=== PATIENT | male | born 1935 | race Caucasian/White ===

== ENCOUNTER 2018-03-07 17:04 | Emergency (ER) | payer MEDICARE, BC ==
[2018-03-07] MEDS ORDERED: Naproxen TAB* 250 MG PO ONE (17:57)
--- NOTE | 2018-03-07 18:05 | UC ---
Back Pain HPI - HPI Summary HPI Summary: The patient is an 82-year-old male who about 12:30 PM today got up on a table to adjust a picture. He fell off the table hitting his back on a bench. He was initially unable to stand due to the pain. He crawled across the floor and after about a half hour was able to stand up. He states that the pain began to fade and he felt pretty comfortable and went home. He took a 2 hour nap and when he woke up the pain was very bad and made it difficult for him to stand. He has had no bowel or bladder dysfunction. He states his back hurts about the level of his belt line. He has had no difficulty urinating and notes that there was no blood in his urine. He has no numbness or tingling of his legs. Denies any neck pain head injury chest pain or abdominal pain. His hips do not hurt. He has not taken anything for pain. - History of Current Complaint Chief Complaint: UCBackPain Stated Complaint: BACK PAIN/PT FELL TODAY Time Seen by Provider: 03/07/18 17:50 Hx Obtained From: Patient Onset/Duration: Sudden Onset, Lasting Hours Severity Initially: Severe Severity Currently: Severe Pain Intensity: 10 Back Pain: Is Discrete @ Character: Aching, Spasmodic, Stiffness Aggravating Factor(s): Movement Alleviating Factor(s): Rest Associated Signs And Symptoms: Positive: Negative Full Body (No Head): 1 - tender - Allergies/Home Medications Allergies/Adverse Reactions: Allergies Allergy/AdvReac Type Severity Reaction Status Date / Time Penicillins Allergy Anaphylatic Verified 03/07/18 17:43 Shock Home Medications: Home Medications Albuterol Sulfate [Proventil Hfa] 2 puff IH QID 03/07/18 [History Confirmed 02/15] DOXYcycline CAP(*) [DOXYcycline 100MG CAP(*)] 100 mg PO DAILY 03/07/18 [History Confirmed 03/07/18] Levocetirizine Dihydrochloride [Xyzal] 5 mg PO DAILY 03/07/18 [History Confirmed 03/07/18] Multivitamin [Gbs-Tvtxgg-Uwbfk] 1 each PO DAILY 03/07/18 [History Confirmed 02/15] Spiriva Inhaler DEVICE* [Tiotropium Inhaler DEVICE*] 18 mcg DAILY 03/07/18 [ History Confirmed 03/07/18] PMH/Surg Hx/FS Hx/Imm Hx Previously Healthy: Yes Cardiovascular History: Hypertension Respiratory History: COPD - Surgical History Surgical History: Yes Surgery Procedure, Year, and Place: Cataracts 05/15 - Family History Known Family History: Positive: Hypertension - Social History Alcohol Use: None Substance Use Type: None Smoking Status (MU): Never Smoked Tobacco Review of Systems Constitutional: Negative Skin: Negative Eyes: Negative ENT: Negative Respiratory: Negative Cardiovascular: Negative Gastrointestinal: Negative Genitourinary: Negative Motor: Negative Neurovascular: Negative Musculoskeletal: Arthralgia, Myalgia Neurological: Negative Psychological: Negative Is Patient Immunocompromised?: No All Other Systems Reviewed And Are Negative: Yes Physical Exam Triage Information Reviewed: Yes Appearance: Well-Appearing, Well-Nourished, Pain Distress Vital Signs: Initial Vital Signs Temp 98.3 F 03/07/18 17:39 Pulse 103 03/07/18 17:39 Resp 19 03/07/18 17:39 BP 165/71 03/07/18 17:39 Pulse Ox 95 03/07/18 17:39 Vital Signs Reviewed: Yes Eyes: Positive: Conjunctiva Clear ENT: Positive: Hearing grossly normal, Uvula midline. Negative: Nasal congestion, Nasal drainage, Trismus, Muffled voice, Hoarse voice Neck: Positive: Supple, Nontender, No Lymphadenopathy Respiratory: Positive: Chest non-tender, Lungs clear, Normal breath sounds, No respiratory distress, No accessory muscle use Cardiovascular: Positive: RRR, No Murmur Abdomen Description: Positive: Nontender, No Organomegaly, Soft Musculoskeletal: Positive: ROM Intact, No Edema Neurological Exam: Normal Neurological: Positive: Alert Diagnostics - Radiology No standard instances Xray Interpretation: No Acute Changes - Negative for lumbar sacral spine fracture or malalignment Radiology Interpretation Completed By: Radiologist Re-Evaluation - Re-Evaluation First Eval Re-Evaluation Time: 19:20 Change: Improved Comment: pain markedly decreased Back Pain Course/Dx - Differential Dx/Diagnosis Provider Diagnoses: back contusion Discharge - Sign-Out/Discharge Documenting (check all that apply): Patient Departure - Discharge Plan Condition: Stable Disposition: HOME Patient Education Materials: Contusion in Adults (ED) Referrals: Al Peña DO [Primary Care Provider] - 3 Days (recheck in 3-7 days) Additional Instructions: aleve 1-2 twice daily for pain tylenol ice - Billing Disposition and Condition Condition: STABLE Disposition: Home
[2018-03-07] MEDS ORDERED: Ondansetron ODT TAB* 4 MG PO ONE (18:10)
--- NOTE | 2018-03-07 18:49 | RAD ---
Indication: Mid lower back pain post fall. Comparison: No relevant prior exams available on the [facility] PACS for comparison. Technique: AP, lateral, and oblique views lumbar sacral spine. Report: Alignment is anatomic. No cortical disruption or trabecular impaction to indicate a vertebral body fracture. Oblique views without evidence for spondylolysis. Minimal multilevel vertebral and plate osteophytosis without significant disc space narrowing. Multilevel predominant mild facet joint osteoarthritis. Unremarkable soft tissue contours. IMPRESSION: #. Negative for lumbar sacral spine fracture or malalignment.
[2018-03-07 19:35] VITALS: BP 120/53
--- NOTE | 2018-03-09 16:21 | UC ---
- Progress Note Progress Note: UTI + enteroccus Pt on Doxy await sensitivity no change Ljj 03/09/18 Re-Evaluation - Re-Evaluation First Eval Re-Evaluation Time: 19:20 Change: Improved Comment: pain markedly decreased Discharge - Sign-Out/Discharge Documenting (check all that apply): Post-Discharge Follow Up - Discharge Plan Condition: Stable Disposition: HOME Patient Education Materials: Contusion in Adults (ED) Referrals: Al Peña DO [Primary Care Provider] - 3 Days (recheck in 3-7 days) Additional Instructions: aleve 1-2 twice daily for pain tylenol ice - Billing Disposition and Condition Condition: STABLE Disposition: Home
== END 2018-03-07 19:36 | disposition home or self-care (01) ==
LOC: UCCORT 17:04
DX: S30.0XXA Contusion of lower back and pelvis, initial encounter (principal); W08.XXXA Fall from other furniture, initial encounter; Y93.89 Activity, other specified; Y92.9 Unspecified place or not applicable; Z88.0 Allergy status to penicillin; I10 Essential (primary) hypertension; J44.9 Chronic obstructive pulmonary disease, unspecified
CPT/HCPCS: 72110; 81003; 87077; 87086; 87186; 99212; A9270-GY; G0463

== ENCOUNTER 2018-05-05 12:46 | Emergency (ER) | payer MEDICARE, BC ==
--- OUTSIDE RECORDS SUMMARY | 2018-05-05 12:57 | XMS REPORT | Continuity of Care Document ---
:1935 External Reference #:[id number] Author Name Katarzyna Shankar Care Team Providers Name Role Phone Alma Rosa Mann M.D. Care Team Information Rn Icu Unavailable Reema Tomas PA-C Primary Care Physician Unavailable Payers Type Date Identification Numbers Payment Provider Subscriber Policy Number: [id number] Medicare Edvin Neely PayID: [id number] [address] [place] [address] Effective: 2011 Policy Number: [id number] [facility] Edvin Neely PayID: [id number] [address] [address] [place] [address] Advance Directives Description No Information Available Problems Description No Information Family History Date Family Member(s) Problem(s) Comments General neck cancer-sister : (age 65 Years) Father due to Unknown Causes : (age 72 Years) Mother due to Cancer Social History Type Date Description Comments Sex Unknown Marital Status Occupation Retired Occupation Tobacco Use Start: Unknown End: Used To Smoke Cigarettes But Unknown Quit. ETOH Use Rarely consumed alcohol in the past Recreational Drug Use Never Used Drugs Allergies, Adverse Reactions, Alerts Date Description Reaction Status Severity Comments 12/04/2012 Penicillin Active 01/15/2013 Bee Sting Active 05/01/2018 Ampicillin Active Medications Medication Date Status Form Strength Qnty SIG Indications Ordering Provider Advair Diskus / Active Aerosol 1 puff Unknown 0000 twice a day Vitamin C / Active Tablets 1 by Unknown 0000 mouth every day Multivitamins / Active Capsules 1 a day Unknown 0000 Calcium + D 00/ Active Chewtabs Unknown 0000 Montelukast / Active Tablets 10mg 1 by Unknown Sodium 0000 mouth every day Avodart / Active Capsules Unknown 0000 Olopatadine HCL / Active Solution Unknown 0000 Levocetirizine / Active Tablets 5mg 1 by Unknown Dihydrochloride 0000 mouth every day Spiriva 00/00/ Active Capsules 18mcg 1 by Unknown Handihaler 0000 mouth every day Atorvastatin 00/ Active Tablets 1 by Unknown Calcium 0000 mouth every day Aspirin 00/00/ Active Tablets DR 81mg everyday Unknown 0000 Lisinopril-Hydroc / Active Tablets 1 by Unknown hlorothiazide 0000 mouth every day Proair HFA / Active Aerosol 108(90Bas 2puffs Unknown 0000 e) four mcg/Act times a day as needed for sob Mometasone / Active Suspension 2 squirts Unknown Furoate 0000 each nostril every day Cetirizine HCL 01/15/ Hx Tablets 10mg 90tab /2-1 po Chris, 2013 - s qd as George, 04/30/ needed M.D. 2018 Patanol 01/15/ Hx Solution 0.1% 3bott 1 drop Chris, 2012 - le each eye George, 04/30/ twice M.D. 2018 daily for itching Astelin 12/04/ Hx Solution 137mcg/Sp 3unit 2 sprays Chris, 2013 - ray s each George, 04/30/ nostil M.D. 2018 qhs Hydrocortisone / Hx Cream 2.5% tid to Unknown 0000 - affected 04/30/ area 2018 Advair Diskus 00/00/ Hx Aerosol 500-50mcg 1unit 1 puff Unknown 0000 - /Dose s twice 04/30/ daily 2018 Advair Diskus 00/00/ Hx Aerosol 100-50mcg 1unit 1 puff Unknown 0000 - /Dose s bid 2017 Lisinopril / Hx Tablets 10mg Unknown - 2017 Multivitamin /00/ Hx qd Unknown - 2017 Vitamin C / Hx 250mg Unknown - 2017 Aspirin 00/ Hx Tablets DR 81mg qday Unknown - 2017 Avodart / Hx Capsules 0.5mg Unknown - 2017 Calcium /00/ Hx 600mg Unknown - 2017 Immunizations Description No Information Available Vital Signs Date Vital Result Comment 05/01/2018 10:37am Weight 189.00 lb Height 68.5 inches 5'8.50" BMI (Body Mass Index) 28.3 kg/m2 BP Systolic 146 mmHg BP Diastolic 58 mmHg Heart Rate 72 /min O2 % BldC Oximetry 92 % Body Temperature 97.6 F Pain Level 0 01/15/2013 9:10am Weight 198.00 lb Height 68.5 inches 5'8.50" BMI (Body Mass Index) 29.7 kg/m2 BP Systolic 144 mmHg BP Diastolic 60 mmHg Body Temperature 98.9 F 12/04/2012 2:02pm Weight 201.00 lb Height 68.5 inches 5'8.50" BMI (Body Mass Index) 30.1 kg/m2 BP Systolic 137 mmHg BP Diastolic 68 mmHg Heart Rate 78 /min O2 % BldC Oximetry 96 % Body Temperature 97.9 F Results Description No Information Available Procedures Description No Information Available Encounters Type Date Location Provider Dx Diagnosis Office Visit 01/15/2013 9:00a Main Office Vicki Monreal, 472.0 Rhinitis Chronic PA 995.3 Allergy Unspec 372.14 Conjunctivitis Chronic Allergic Other Office Visit 12/04/2012 1:45p Main Office Joya Watson 478.0 Hypertrophy Nasal Hughes, [employer] 472.0 Rhinitis Chronic Plan of Treatment No Information Available
--- OUTSIDE RECORDS SUMMARY | 2018-05-05 12:57 | XMS REPORT ---
:1935 External Reference #:[id number] Author Organization [facility] Address [address], [address] [place] [address] Phone [phone] Care Team Providers Name Role Phone CaseyAl Primary Care Physician Unavailable Payers Type Date Identification Numbers Payment Provider Subscriber Medicare Primary Effective: Policy Number: Medicare Edvin Neely 2000 [id number] PayID: [id number] [address] [address] [place] [address] Medigap Part B Effective: 2017 Policy Number: [facility] Edvin Neely [id number] PayID: [id number] [address] [address] [place] [address] Problems Description No Information Family History Date Family Member(s) Problem(s) Comments : (age 63 Father due to Natural Years) Causes : (age 72 Mother due to Breast Secondary to compliactions Years) Cancer of breast cancer with metastasis Social History Type Date Description Comments Marital Status Home Environment Lives With Cigarette Use Former Cigarette Smoker Quit in 1995 ETOH Use Occasionally consumes alcohol Recreational Drug Use Denies Drug Use Smoking Patient is a former smoker Allergies, Adverse Reactions, Alerts Date Description Reaction Status Severity Comments 12/31/2016 Penicillins active Medications Medication Date Status Form Strength Qnty SIG Indications Ordering Provider Stiolto Respimat 04/25 Active Aerosol 2.5-2.5mc 4unit take 2 J44.9 Kheti, g/Act s puffs once MD Mathew daily. Spiriva 12/31 Active Capsules 18mcg 30cap Inhale The J44.9 Kheti, Handihaler s Contents MD Mathew Of One Capsule Via Handihaler By Mouth Daily Advair Diskus Active Aerosol 500-50mcg inhale one Unknown /0000 /Dose puff by mouth once a day if needed. Montelukast Active Tablets 10mg 1 by mouth Unknown Sodium /0000 every day Hydrochlorothiazi Active Tablets 25mg 1 by mouth Unknown de / every day Atorvastatin Active Tablets 10mg 1 by mouth Unknown Calcium /0000 every day Ventolin HFA Active Aerosol 108(90Bas 1-2 puffs Unknown /0000 e) every 4-6 mcg/Act hours as needed Dutasteride Active Capsules 0.5mg 1 capsule Unknown / daily. Levocetirizine Active Tablets 5mg 1 by mouth Unknown Dihydrochloride / every day Olopatadine HCL Active Solution 0.1% 1-2 drops Unknown / each eye once to twice daily as beeded, Vitamin C Active Tablets 500mg 1 tablet Unknown / daily Calcium 600 + D Active Tablets 600-200mg twice a Unknown /0000 -Unit day Multivitamin Active Tablets Adlt 50+ 1 by mouth Unknown Adults 50+ /0000 every day Aspir-[address] 81mg 1 by mouth Unknown / every day Lisinopril-Hydroc Active Tablets 20-25mg 1 by mouth Unknown hlorothiazide /0000 every day Nasonex Active Suspension 50mcg/Act one spray Unknown / each nostril one to two times a day Spiriva Hx Capsules 18mcg 1 Unknown Handihaler /0000 inhalation every day Lisinopril Hx Tablets 10mg 1 by mouth Unknown /0000 every day Ipratropium Hx Solution 0.06% 2 sprays Unknown [place] /0000 to each nostril twice a day Doxycycline Hx Tablets 20mg 1 tab in Unknown Hyclate /0000 am; 1 tab in pm. 3 months on - 3 months off. Spiriva Respimat Hx Aerosol 2.5mcg/Ac take 2 Unknown /0000 t puffs once daily. Vital Signs Date Vital Result Comment 04/25/2018 BP Systolic Sitting Left Arm 128 mmHg BP Diastolic Sitting Left Arm 58 mmHg Heart Rate 103 /min Respiratory Rate 16 /min Height 70 inches 5'10" Weight 187.00 lb BMI (Body Mass Index) 26.8 kg/m2 BSA (Body Surface Area) 2.03 m2 [place] body weight in kilograms 75 O2 Saturation Level with Exercise 94 % 07/06/2017 BP Systolic Sitting Right Arm 128 mmHg BP Diastolic Sitting Right Arm 70 mmHg Heart Rate 78 /min Respiratory Rate 18 /min Height 70 inches 5'10" Weight 180.00 lb BMI (Body Mass Index) 25.8 kg/m2 BSA (Body Surface Area) 2.00 m2 [place] body weight in kilograms 75 O2 % BldC Oximetry 95 % 12/31/2016 BP Systolic Sitting Right Arm 132 mmHg BP Diastolic Sitting Right Arm 52 mmHg Heart Rate 72 /min Respiratory Rate 18 /min Height 70 inches 5'10" Weight 187.00 lb BMI (Body Mass Index) 26.8 kg/m2 BSA (Body Surface Area) 2.03 m2 [place] body weight in kilograms 75 O2 % BldC Oximetry 100 % ra Results Test Date Test Result H/L Range Note Lymphocytes/leuk NFr 12/07/2016 Lymphocytes/leuk NFr 5.9 Low 20.0-42.0 Bld Auto Bld Auto MCH RBC Qn Auto 12/07/2016 MCH RBC Qn Auto 31.0 27.0-33.0 MCHC RBC Auto-mCnc 12/07/2016 MCHC RBC Auto-mCnc 32.2 31.7-36.0 MCV RBC Auto 12/07/2016 MCV RBC Auto 96.2 High 80.0-96.0 Monocytes # Bld Auto 12/07/2016 Monocytes # Bld Auto 0.33 0.0-0.8 Monocytes/leuk NFr 12/07/2016 Monocytes/leuk NFr 3.0 0.0-10.0 Bld Auto Bld Auto Neutrophils # Bld 12/07/2016 Neutrophils # Bld 9.94 High 1.8-7.0 Auto Auto Neutrophils/leuk NFr 12/07/2016 Neutrophils/leuk NFr 91.1 High 33.0-73.0 Bld Auto Bld Auto PMV Bld Auto 12/07/2016 PMV Bld Auto 11.0 High 6.6-10.6 Platelets [#/volume] 12/07/2016 Platelets [#/volume] 202 150-400 in Blood by Automated in Blood by Automated count count Potassium SerPl-sCnc 12/07/2016 Potassium SerPl-sCnc 4.6 3.5-5.1 RBC # Bld Auto 12/07/2016 RBC # Bld Auto 3.97 Low 4.20-5.80 RDW RBC Auto 12/07/2016 RDW RBC Auto 46.9 36-51 RDW RBC Auto-Rto 12/07/2016 RDW RBC Auto-Rto 13.7 11.6-15.8 Sodium SerPl-sCnc 12/07/2016 Sodium SerPl-sCnc 142 136-145 Unloinc 12/07/2016 Unloinc See Note 1 WBC # Bld Auto 12/07/2016 WBC # Bld Auto 10.9 High 3.4-10.5 Legionella Culture 12/07/2016 Legionella Culture (SEE NOTE) 2, 3 Basic Metabolic Panel 12/07/2016 Glucose 169 mg/dL High 74-106 2 BUN 39 mg/dL High 7-18 2 Creatinine 1.2 mg/dL 0.6-1.3 2 Glom Filtration Rate, Estimate >60 mL/min >60 2 If >60 mL/min >60 2, 4 BUN/Creat 32.5 ratio 2 Sodium 142 mmol/L 136-145 2 Potassium 4.6 mmol/L 3.5-5.1 2 Chloride 104 mmol/L 98-107 2 Carbon Dioxide 30 mmol/L 21-32 2 Anion Gap 8 mEq/L 8-16 2 Calcium 9.2 mg/dL 8.5-10.1 2 CBS W/Automated Diff 12/07/2016 White Blood Count 10.9 K/uL High 3.4-10.5 2 Red Blood Count 3.97 M/uL Low 4.20-5.80 2 Hemoglobin 12.3 gm/dL Low 12.8-17.0 2 Hematocrit 38.2 % 38.0-48.0 2 Mean Cell Volume 96.2 fl High 80.0-96.0 2 Mean Corpuscular HGB 31.0 pg 27.0-33.0 2 Mean Corpuscular HGB Conc 32.2 g/dL 31.7-36.0 2 Platelet Count 202 K/uL 150-400 2 Red Cell Distri Width SD 46.9 fl 36-51 2 Red Cell Distri Width %CV 13.7 % 11.6-15.8 2 Mean Platelet Volume 11.0 fL High 6.6-10.6 2 Neut% 91.1 % High 33.0-73.0 2 Lymph % 5.9 % Low 20.0-42.0 2 Harlan % 3.0 % 0.0-10.0 2 Eo% 0.0 % 0.0-6.6 2 Bas% 0.0 % 0.0-1.1 2 Neut# 9.94 K/uL High 1.8-7.0 2 Lymph # 0.64 K/uL Low 1.0-4.0 2 Harlan # 0.33 K/uL 0.0-0.8 2 Eos # 0.00 K/uL 0.0-0.5 2 Baso # 0.00 K/uL 0.0-0.1 2 Slide Review 12/07/2016 Slide Review (SEE NOTE) 2, 5 Anion Gap SerPl-sCnc 12/07/2016 Anion Gap SerPl-sCnc 8 8-16 BUN SerPl-mCnc 12/07/2016 BUN SerPl-mCnc 39 High 7-18 BUN/Creat SerPl 12/07/2016 BUN/Creat SerPl 32.5 Basophils [#/volume] 12/07/2016 Basophils [#/volume] 0.00 0.0-0.1 in Blood by Automated in Blood by Automated count count Basophils/leuk NFr 12/07/2016 Basophils/leuk NFr 0.0 0.0-1.1 Bld Auto Bld Auto Lymphocytes 12/07/2016 Lymphocytes 0.64 Low 1.0-4.0 [#/volume] in Blood [#/volume] in Blood by Automated count by Automated count Hgb Bld-mCnc 12/07/2016 Hgb Bld-mCnc 12.3 Low 12.8-17.0 Hct VFr Bld Auto 12/07/2016 Hct VFr Bld Auto 38.2 38.0-48.0 Glucose [Mass/volume] 12/07/2016 Glucose [Mass/volume] 169 High 74-106 in Serum or Plasma in Serum or Plasma Eosinophil/leuk NFr 12/07/2016 Eosinophil/leuk NFr 0.0 0.0-6.6 Bld Auto Bld Auto Co2 SerPl-sCnc 12/07/2016 Co2 SerPl-sCnc 30 21-32 Calcium SerPl-mCnc 12/07/2016 Calcium SerPl-mCnc 9.2 8.5-10.1 Eosinophil # Bld Auto 12/07/2016 Eosinophil # Bld Auto 0.00 0.0-0.5 Chloride SerPl-sCnc 12/07/2016 Chloride SerPl-sCnc 104 98-107 Creat SerPl-mCnc 12/07/2016 Creat SerPl-mCnc 1.2 0.6-1.3 Total Cells Counted 12/06/2016 Total Cells Counted 100 Bld Bld Neuts Seg/leuk NFr 12/06/2016 Neuts Seg/leuk NFr 70 33-73 Bld Manual Bld Manual Neuts Band/leuk NFr 12/06/2016 Neuts Band/leuk NFr 20 High 0-8 Bld Manual Bld Manual Monocytes/100 12/06/2016 Monocytes/100 1 0-10 leukocytes in Blood leukocytes in Blood by Manual count by Manual count Basic Metabolic Panel 12/06/2016 Glucose 173 mg/dL High 74-106 2 BUN 47 mg/dL High 7-18 2 Creatinine 1.3 mg/dL 0.6-1.3 2 Glom Filtration Rate, Estimate 56 mL/min >60 2 If >60 mL/min >60 2, 6 BUN/Creat 36.1 ratio 2 Sodium 140 mmol/L 136-145 2 Potassium 3.8 mmol/L 3.5-5.1 2 Chloride 102 mmol/L 98-107 2 Carbon Dioxide 30 mmol/L 21-32 2 Anion Gap 8 mEq/L 8-16 2 Calcium 9.1 mg/dL 8.5-10.1 2 CBS W/Automated Diff 12/06/2016 White Blood Count 11.2 K/uL High 3.4-10.5 2 Red Blood Count 3.96 M/uL Low 4.20-5.80 2 Hemoglobin 12.5 gm/dL Low 12.8-17.0 2 Hematocrit 38.2 % 38.0-48.0 2 Mean Cell Volume 96.5 fl High 80.0-96.0 2 Mean Corpuscular HGB 31.6 pg 27.0-33.0 2 Mean Corpuscular HGB Conc 32.7 g/dL 31.7-36.0 2 Platelet Count 187 K/uL 150-400 2 Red Cell Distri Width SD 47.6 fl 36-51 2 Red Cell Distri Width %CV 13.9 % 11.6-15.8 2 Mean Platelet Volume 11.7 fL High 6.6-10.6 2, 7 Neut# 10.13 K/uL High 1.8-7.0 2 Lymph # 0.58 K/uL Low 1.0-4.0 2 Harlan # 0.46 K/uL 0.0-0.8 2 Eos # 0.00 K/uL 0.0-0.5 2 Baso # 0.01 K/uL 0.0-0.1 2 Slide Review 12/06/2016 Slide Review DIFF ORDERED 2 Lymphocytes/100 12/06/2016 Lymphocytes/100 9 Low 20-42 leukocytes in Blood by leukocytes in Blood by Manual coun Manual count Differential-WBC Confirm 12/06/2016 Total Cells Counted 100 #CELLS 2 Band% 20 % High 0-8 2 Neutrophils% 70 % 33-73 2 Lymph% 9 % Low 20-42 2 Monocyte% 1 % 0-10 2 Platelet Estimate NORMAL 2 Dohle Bodies 0-1+ 2 Blood platelet adequacy 12/06/2016 Blood platelet adequacy Normal detection by light detection by light microsc microscopy Serum or plasma 12/05/2016 Serum or plasma 0.094 troponin i.cardiac troponin i.cardiac measurement (ma measurement (mass/volume) Serum or plasma 12/05/2016 Serum or plasma 158 39-308 creatine kinase creatine kinase measurement (enzym measurement (enzymatic activity/volume) Prot SerPl-mCnc 12/05/2016 Prot SerPl-mCnc 7.6 6.4-8. 2 Globulin Ser Calc-mCnc 12/05/2016 Globulin Ser Calc-mCnc 4.4 High 1.9-4. 3 Bilirub SerPl-mCnc 12/05/2016 Bilirub SerPl-mCnc 0.7 0.2-1. 0 Aspartate 12/05/2016 Aspartate 28 15-37 aminotransferase aminotransferase [Enzymatic activity/vol [Enzymatic activity/volume] in Serum or Plasma Albumin/Glob SerPl 12/05/2016 Albumin/Glob SerPl 0.7 Albumin SerPl-mCnc 12/05/2016 Albumin SerPl-mCnc 3.2 Low 3.4-5. 0 Alt SerPl-cCnc 12/05/2016 Alt SerPl-cCnc 34 12-78 Alp SerPl-cCnc 12/05/2016 Alp SerPl-cCnc 83 45-117 Fibrin D-dimer Feu 12/05/2016 Fibrin D-dimer Feu 0.87 measurement in platelet measurement in platelet poor pl poor plasma (mass/volume) Blood Culture 12/05/2016 Blood Culture Aerobic NO GROWTH: 2, 8 FINAL <SEE NOTE> Blood Culture Anaerobic NO GROWTH: FINAL <SEE NOTE> 2, 9 Lactate [Moles/volume] in 12/05/2016 Lactate [Moles/volume] in 1.9 0.4- 1.9 Serum or Plasma Serum or Plasma Bacteria Bld Aerobe Cult 12/05/2016 Bacteria Bld Aerobe Cult No Growth Anaerobic blood culture 12/05/2016 Anaerobic blood culture No Growth Unloinc 12/05/2016 Unloinc R.Rad.Art. Unloinc Oxygen Unloinc Yes Arterial blood partial 12/05/2016 Arterial blood partial 65 Low 80-105 pressure of oxygen with pressure of oxygen with tem temperature correction Arterial blood partial 12/05/2016 Arterial blood partial 52 High 35-45 pressure of carbon dioxide pressure of carbon dioxide with temperature correction Arterial blood pH 12/05/2016 Arterial blood pH 7.34 Low 7.35-7.45 measurement with patient measurement with patient tempera temperature correction Arterial blood oxygen 12/05/2016 Arterial blood oxygen 89 Low 90-99 saturation measurement saturation measurement Arterial blood bicarbonate 12/05/2016 Arterial blood 27 High 22-26 measurement (moles/volu bicarbonate measurement (moles/volume) Arterial blood base excess 12/05/2016 Arterial blood base 1 -2-2 by calculation excess by calculation * Inhaled oxygen flow rate 12/05/2016 * Inhaled oxygen flow 3 0-20 rate 1 Instrument flagged sample for slide review. Less than 10% Bands seen, no other immature WBC's seen. RBC morphology essentially normal. Platelet estimate= Normal 2 COPD EXACERBATION, AC BRONCHITIS 3 Legionella Species Culture Report: No Legionella species isolated. Performed at: RN - [facility] [address] [id number] Lav Crewman: Ivon London MD, Phone: [phone] Note: Persistent reduction for 3 months or more in an eGFR <60 mL/min/1.73 m2 defines CKD. Patients with eGFR values >/=60 mL/min/1.73 m2 may also have CKD if evidence of persistent proteinuria is present. The original MDRD equation for estimated GFR is not valid for patients less than 18 years of age. Additional information may be found at www.kdoqi.org. 5 Instrument flagged sample for slide review. Less than 10% Bands seen, no other immature WBC's seen. RBC morphology essentially normal. Platelet estimate=NORMAL 6 Note: Persistent reduction for 3 months or more in an eGFR <60 mL/min/1.73 m2 defines CKD. Patients with eGFR values >/=60 mL/min/1.73 m2 may also have CKD if evidence of persistent proteinuria is present. The original MDRD equation for estimated GFR is not valid for patients less than 18 years of age. Additional information may be found at www.kdoqi.org. 7 12/06/16 0911: NEUT% previously reported as: 90.6 H % Amended result called to: [] - 12/06/16 at 0912/06/16 0911: LYMPH % previously reported as: 5.2 L % Amended result called to: [] - 12/06/16 at 91012/06/16 0911: MONO % previously reported as: 4.1 % Amended result called to: [] - 12/06/16 at 0911 12/06/16 0911: EO% previously reported as: 0.0 % Amended result called to: [] - 12/06/16 at 0911 12/06/16 0911: BAS% previously reported as: 0.1 % Amended result called to: [] - 12/06/16 at 0911 8 NO GROWTH: FINAL REPORT 9 NO GROWTH: FINAL REPORT Procedures Date CPT Code Description Status 01/19/2017 00598 Bronchospasm Provocation Evaluation Multi Spirometric Completed Determinati 01/19/2017 75261 Spirometry Completed Encounters Type Date Location Provider CPT E/M Dx Office Visit 07/06/2017 2:30p [place] [address] J44.9 Z87.891 Z79.51 Office Visit 12/31/2016 1:00[place] [address] J44.9 F17.211 J30.89 Plan of Care Future Appointment(s):09/25/2018 1:45 pm - Mathew [facility]drop MD at [facility]/25 /2018 - Mathew Waldrop MDJ44.9 Chronic obstructive pulmonary disease, unspecifiedNew Medication:Stiolto Respimat 2.5-2.5 mcg/ActComments:GOLD Stage B COPD; moderate to severe symptoms but without frequent ex acerbations. I am going to change Spiriva to Stiolto (2 puffs once in the morning). He has about 1 1/2 months left of Spiriva at home and wishes to finish that before changing.Follow up:5 months
[2018-05-05 13:07] VITALS: BP 151/46
[2018-05-05] MEDS ORDERED: Lidocaine 1% MPF* 2 ML VIAL INJ ONE (13:32)
--- NOTE | 2018-05-05 13:56 | UC ---
Skin Complaint HPI - HPI Summary HPI Summary: Patient states that he lost his footing at [employer]oo and tripped causing him to hit his left ear on a table. This happened about one and half hours prior to arrival he denies loss of consciousness, headache, visual change, neck and back pain. He denies any other injuries offers no other complaints. He is not on blood thinners other than daily aspirin. His tetanus is within the past 10 years. - History of Current Complaint Chief Complaint: UCLaceration Time Seen by Provider: 05/05/18 13:17 Stated Complaint: LEFT EAR LAC Hx Obtained From: Patient Onset/Duration: Sudden Onset Timing: Constant Pain Intensity: 0 Location: Ear (Left) Aggravating Factor(s): Nothing Alleviating Factor(s): Nothing - Pinna Associated Signs & Symptoms: Negative: Nausea, Syncope, Joint Swelling - Allergy/Home Medications Allergies/Adverse Reactions: Allergies Allergy/AdvReac Type Severity Reaction Status Date / Time Penicillins Allergy Anaphylatic Verified 05/05/18 13:00 Shock Review of Systems Constitutional: Negative Skin: Other - Cut to left ear Eyes: Negative ENT: Negative Respiratory: Negative Cardiovascular: Negative Gastrointestinal: Negative Genitourinary: Negative Motor: Negative Neurovascular: Negative Musculoskeletal: Negative Neurological: Negative Psychological: Negative Is Patient Immunocompromised?: No All Other Systems Reviewed And Are Negative: Yes PMH/Surg Hx/FS Hx/Imm Hx - Additional Past Medical History Additional PMH: Hypotension, COPD, allergies. - Surgical History Surgical History: Yes Surgery Procedure, Year, and Place: Cataracts 05/15 - Family History Known Family History: Positive: Hypertension - Social History Lives: With Family Alcohol Use: None Substance Use Type: None Smoking Status (MU): Former Smoker When Did the Patient Quit Smoking/Using Tobacco: 96 - Immunization History Most Recent Tetanus Shot: 3-4 years ago Hx Tetanus, Diphtheria Vaccination: Yes Vaccination Up to Date: Yes Physical Exam Triage Information Reviewed: Yes Appearance: Well-Appearing Vital Signs: Initial Vital Signs Temp 98.2 F 05/05/18 13:03 Pulse 88 05/05/18 13:03 Resp 18 05/05/18 13:03 BP 151/46 05/05/18 13:03 Pulse Ox 96 05/05/18 13:03 Vital Signs Reviewed: Yes Eyes: Positive: Conjunctiva Clear, Other: - Pupils status post cataract. ENT: Positive: Pharynx normal, TMs normal, Other - There is a 2 cm laceration to the pinna of the left ear. I cannot appreciate a Cartledge defect. There is mild bruising but no auricular hematoma.. Negative: Nasal congestion, Nasal drainage Neck: Positive: Supple, Nontender, No Lymphadenopathy Respiratory: Positive: Lungs clear, Normal breath sounds Cardiovascular: Positive: RRR, No Murmur Abdomen Description: Positive: Nontender, No Organomegaly, Soft Bowel Sounds: Positive: Present Musculoskeletal: Positive: Other: - No cranial or facial bone instability or tenderness. Cervical thoracic and lumbar spine are without deformity or tenderness. Extremities are atraumatic. Neurological: Positive: Other: - Patient is alert and oriented to person place and time. Cranial nerves grossly intact. Sensorivascular motor function intact 4. Normal steady gait. Psychological: Positive: Age Appropriate Behavior Skin Exam: Normal Course/Dx - Course Course Of Treatment: Procedure: time out done. prep betadine. local with 1ml 1% lidocaine. explord, no FB and no cartilage damage appreciated. Site irrigated with copious amounts sterile sodium chloride. Reprepped with Betadine. Draped in sterile fashion. Closed with 6-0 nylon and 5 interrupted stitches. Good approximation of wound edges no bleeding postprocedure he should tolerate procedure well. 2.0cm in length. s/s's auricular hematoma d/w pt, he will seek recheck immediately for any worsening. - Diagnoses Provider Diagnoses: 2cm lac L ear Discharge - Sign-Out/Discharge Documenting (check all that apply): Patient Departure All imaging exams completed and their final reports reviewed: No Studies - Discharge Plan Condition: Stable Disposition: HOME Patient Education Materials: Care For Your Stitches (DC) Referrals: Al Peña DO [Primary Care Provider] - Additional Instructions: SUTURES OUT IN 5 DAYS. RECHECK IMMEDIATELY FOR SWELLING. - Billing Disposition and Condition Condition: STABLE Disposition: Home
== END 2018-05-05 14:05 | disposition home or self-care (01) ==
LOC: UCCORT 12:46
DX: W01.190A Fall on same level from slipping, tripping and stumbling with subsequent striking against furniture, initial encounter (principal); Y93.01 Activity, walking, marching and hiking; Y92.22 Religious institution as the place of occurrence of the external cause; S01.312A Laceration without foreign body of left ear, initial encounter; Z88.0 Allergy status to penicillin; Z87.891 Personal history of nicotine dependence
CPT/HCPCS: 12011; 99211; G0463

== ENCOUNTER 2018-05-10 10:55 | Emergency (ER) | payer MEDICARE, BC ==
--- OUTSIDE RECORDS SUMMARY | 2018-05-10 11:05 | XMS REPORT | Continuity of Care Document ---
:1935 External Reference #:[id number] Author Name Joya Hughes NP Address [address] [place] [address] Care Team Providers Name Role Phone Alma Rosa Mann M.D. Care Team Information Gambling Broker Unavailable Reema Tomas PA-C Primary Care Physician Unavailable Payers Type Date Identification Numbers Payment Provider Subscriber Policy Number: [id number] Medicare Edvin Neely PayID: [id number] [address] [place] [address] Effective: 2011 Policy Number: [id number] [facility] Edvin Neely PayID: [id number] [address] [address] [place] [address] Advance Directives Description No Information Available Problems [...] Form Strength Qnty SIG Indications Ordering Provider Percocet 05/03/ Active Tablets 5-325mg 14tab 1-2 by Jaqui Perez s mouth George, four M.D. times a day as needed for pain Advair Diskus / Active Aerosol 1 puff Unknown 0000 twice a day Vitamin C / Active Tablets 1 by Unknown 0000 mouth every day Multivitamins / Active Capsules 1 a day Unknown 0000 Calcium + D / Active Chewtabs Unknown 0000 Montelukast / Active Tablets 10mg 1 by Unknown Sodium 0000 mouth every day Avodart / Active Capsules Unknown 0000 Olopatadine HCL / Active Solution Unknown 0000 Levocetirizine / Active Tablets 5mg 1 by Unknown Dihydrochloride 0000 mouth every day Spiriva / Active Capsules 18mcg 1 by Unknown Handihaler 0000 mouth every day Atorvastatin / Active Tablets 1 by Unknown Calcium 0000 mouth every day Aspirin / Active Tablets DR 81mg everyday Unknown 0000 Lisinopril-Hydroc / Active Tablets 1 by Unknown hlorothiazide 0000 mouth every day Proair HFA / Active Aerosol 108(90Bas 2puffs Unknown 0000 e) four mcg/Act times a day as needed for sob Mometasone / Active Suspension 2 squirts Unknown Furoate 0000 each nostril every day Cetirizine HCL 01/15/ Hx Tablets 10mg 90tab 1/2-1 po Chris, 2013 - s qd as George, 04/30/ needed M.D. 2018 Patanol 01/15/ Hx Solution 0.1% 3bott 1 drop Chris, 2013 - le each eye George, 04/30/ twice M.D. 2018 daily for itching Astelin 12/04/ Hx Solution 137mcg/Sp 3unit 2 sprays Chris, 2013 - ray s each George, 04/30/ nostil M.D. 2018 qhs Hydrocortisone / Hx Cream 2.5% tid to Unknown 0000 - affected 04/30/ area 2018 Advair Diskus 00/ Hx Aerosol 500-50mcg 1unit 1 puff Unknown 0000 - /Dose s twice 04/30/ daily 2018 Advair Diskus 0000/ Hx Aerosol 100-50mcg 1unit 1 puff Unknown 0000 - /Dose s bid 2017 Lisinopril / Hx Tablets 10mg Unknown - 2017 Multivitamin /00/ Hx qd Unknown - 2017 Vitamin C // Hx 250mg Unknown - 2017 Aspirin / Hx Tablets DR 81mg qday Unknown - 2017 Avodart / Hx Capsules 0.5mg Unknown 2017 Calcium / Hx 600mg Unknown 2017 Immunizations Description No Information Available Vital Signs Date Vital Result Comment 05/10/2018 10:22am Weight 188.00 lb Height 68.5 inches 5'8.50" BMI (Body Mass Index) 28.2 kg/m2 BP Systolic 165 mmHg BP Diastolic 50 mmHg Heart Rate 91 /min O2 % BldC Oximetry 92 % Body Temperature 98.0 F Pain Level 0 05/01/2018 10:37am Weight 189.00 lb Height 68.5 [...] 96 % Body Temperature 97.9 F Results Test Date Facility Test Result H/L Range Note Laboratory test 05/03/2018 [facility] Surgical SEE RESULT [address] [place] [address] 1 SEE RESULT BELOW Name: EDVIN NEELY : [address]: George Perez MD Acct: [id number] Unit: [id number] AGE: 82 Location: [facility] Re05/03/18 SEX: M Status: REG REF SPEC: [id number] MOLINA: 05/03/[address] [facility] [address]: George Perez MD REQ: [id number] RECD: 05/03/18 STATUS: SOUT _ ORDERED: LEVEL 4 COMMENTS: [id number] FINAL DIAGNOSIS Temporal artery, right, biopsy: -- Benign arterial tissue with focal perivascular feeder vessel lymphocytic inflammation; see comment. COMMENT: Histologic sections show benign arterial tissue with an intact internal elastic lamina and no evidence of medial inflammation. A small feeder vessel shows a mild perivascular lymphoid infiltrate in some levels, a non-specific finding, but one that may be seen in partially treated temporal arteritis. CLINICAL HISTORY No history given GROSS DESCRIPTION The specimen is received in formalin labeled, Right Temporal Artery Biopsy, and consists of a 2.7 by up to 0.2 cm orourke-lazo tubular soft tissue fragment with scant adherent yellow fat. The specimen is serially sectioned and entirely submitted in one cassette. Signed by and Reported on: Georgina Good MD 05/05/18 0932 END OF REPORT DEPARTMENT OF PATHOLOGY, [address] [place] [address] Adriano Burk M.D. Director [facility] # [id number] Procedures Description No Information Available Encounters Type Date Location Provider Dx Diagnosis Office Visit 05/01/2018 10:30a Main Office George Perez M.D. H53.2 Diplopia J31.0 Chronic rhinitis Office Visit 01/15/2013 9:00a Main Office Vicki Monreal, 472.0 Rhinitis Chronic PA 995.3 Allergy Unspec 372.14 Conjunctivitis Chronic Allergic Other Office Visit 12/04/2012 1:45p Main Office Joya Watson 478.0 Hypertrophy Nasal Hughes, ENRICHMENT DIRECTOR Turbinates 472.0 Rhinitis Chronic Plan of Treatment No Information Available
--- OUTSIDE RECORDS SUMMARY | 2018-05-10 11:05 | XMS REPORT | Continuity of Care Document ---
:1935 External Reference #:[id number] Author Name Charisma Bledsoe Care Team Providers Name Role Phone Alma Rosa Mann M.D. Care Team Information Leveler Unavailable Reema Tomas PA-C Primary Care Physician Unavailable Payers Type Date Identification Numbers Payment Provider Subscriber Policy Number: [id number] Medicare Nohemy Neely PayID: [id number] [address] [place] [address] Effective: 2011 Policy Number: [id number] [facility] Nohemy Neely PayID: [id number] [address] [address] [place] [address] Advance Directives Description No Information Available Problems [...] Unknown Sodium 0000 mouth every day Avodart 00// Active Capsules Unknown 0000 Olopatadine HCL / [...] to Unknown 0000 - affected 04/30/ area 2017 Advair Diskus 00// Hx Aerosol 500-50mcg 1unit 1 puff Unknown 0000 - /Dose s twice 04/30/ daily 2018 Advair Diskus 00/00/ Hx Aerosol 100-50mcg 1unit 1 puff Unknown 0000 - /Dose s bid 2017 Lisinopril / Hx Tablets 10mg Unknown - 2017 Multivitamin /00/ Hx qd Unknown - 2017 Vitamin C // Hx 250mg Unknown - 2017 Aspirin // Hx Tablets DR 81mg qday Unknown - 2017 Avodart / Hx Capsules 0.5mg Unknown 0000 - 2017 Calcium 00/00/ Hx 600mg Unknown 0000 - 2017 Immunizations Description No Information Available [...] Result H/L Range Note Laboratory test 05/03/2018 [facility] Surgical SEE RESULT [address] [place] [address] 1 SEE RESULT BELOW Name: NOHEMY NEELY : [address]: George Perez MD Acct: [id number] Unit: [id number] AGE: 82 Location: [facility] Re05/03/18 SEX: M Status: REG REF SPEC: [id number] MOLINA: 05/03/[address] [facility] [address]: George Perez MD REQ: [id number] RECD: 05/03/18 STATUS: SOUT _ ORDERED: LEVEL 4 COMMENTS: [id number] FINAL DIAGNOSIS Temporal artery, right, biopsy: -- [...] 0932 END OF REPORT DEPARTMENT OF PATHOLOGY, [address] [address] Adriano Burk M.D. Director [facility] # [id number] Procedures Description No Information Available Encounters Type Date Location Provider Dx Diagnosis Office Visit 05/01/2018 10:30a Main Office George Perez M.D. H53.2 Diplopia J31.0 Chronic rhinitis Office Visit 01/15/2013 9:00a Main Office Vicki Monreal, 472.0 Rhinitis Chronic PA 995.3 Allergy Unspec 372.14 Conjunctivitis Chronic Allergic Other Office Visit 12/04/2012 1:45p Main Office Joya A 478.0 Hypertrophy Nasal Hughes, BLOW PIT OPERATOR Turbinates 472.0 Rhinitis Chronic Plan of Treatment No Information Available
[2018-05-10 12:36] VITALS: BP 125/46
--- NOTE | 2018-05-10 12:39 | UC ---
UC General HPI - HPI Summary HPI Summary: Patient had stitches placed in his left ear 5 days ago and he returns for removal today. Denies any associated headache. He has no complaints. - History of Current Complaint Chief Complaint: UCLaceration Stated Complaint: STICHES REMOVAL - DONE HERE Time Seen by Provider: 05/10/18 12:33 Hx Obtained From: Patient Pain Intensity: 0 Associated Signs & Symptoms: Negative: Fever, Headache, Nausea - Allergy/Home Medications Allergies/Adverse Reactions: Allergies Allergy/AdvReac Type Severity Reaction Status Date / Time Penicillins Allergy Anaphylatic Verified 05/10/18 12:33 Shock PMH/Surg Hx/FS Hx/Imm Hx - Additional Past Medical History Additional PMH: asthma, hypotension, copd - Surgical History Surgical History: Yes Surgery Procedure, Year, and Place: Cataracts 05/15 - Family History Known Family History: Positive: Hypertension - Social History Occupation: Retired Alcohol Use: None Substance Use Type: None Smoking Status (MU): Former Smoker When Did the Patient Quit Smoking/Using Tobacco: 96 - Immunization History Most Recent Tetanus Shot: ~ Hx Tetanus, Diphtheria Vaccination: Yes Vaccination Up to Date: Yes Review of Systems Constitutional: Negative Skin: Negative Eyes: Negative ENT: Negative Respiratory: Cough - chronic Cardiovascular: Negative Gastrointestinal: Negative Genitourinary: Negative Motor: Negative Neurovascular: Negative Musculoskeletal: Negative Neurological: Negative Psychological: Negative Is Patient Immunocompromised?: No All Other Systems Reviewed And Are Negative: Yes Physical Exam Triage Information Reviewed: Yes Appearance: Well-Appearing Vital Signs: Initial Vital Signs Temp 97.5 F 05/10/18 12:33 Pulse 72 05/10/18 12:33 Resp 18 05/10/18 12:33 BP 125/46 05/10/18 12:33 Pulse Ox 96 05/10/18 12:33 Vital Signs Reviewed: Yes Eyes: Positive: Conjunctiva Clear ENT: Positive: Normal ENT inspection Neck: Positive: Supple Respiratory: Positive: Lungs clear, Decreased breath sounds Cardiovascular: Positive: RRR, No Murmur Abdomen Description: Positive: Nontender, No Organomegaly, Soft Bowel Sounds: Positive: Present Musculoskeletal: Positive: ROM Intact Neurological: Positive: Alert Psychological: Positive: Age Appropriate Behavior Skin Exam: Normal, Other - 5 sutures noted the top of left ear. The wound has healed. There is mild scabbing but no erythema, swelling or bruising Course/Dx - Course Course Of Treatment: Procedure 5 stitches removed from the left ear. Patient tolerated well. - Differential Dx - Multi-Symptom Provider Diagnoses: Suture removal left ear. Discharge - Sign-Out/Discharge Documenting (check all that apply): Patient Departure All imaging exams completed and their final reports reviewed: No Studies - Discharge Plan Condition: Stable Disposition: HOME Patient Education Materials: Stitches Removal (ED) Referrals: Al Peña DO [Primary Care Provider] - If Needed - Billing Disposition and Condition Condition: STABLE Disposition: Home
== END 2018-05-10 12:43 | disposition home or self-care (01) ==
LOC: UCCORT 10:55
DX: S01.312D Laceration without foreign body of left ear, subsequent encounter (principal)

== ENCOUNTER 2018-06-06 09:38 | Inpatient (IN) | payer MEDICARE, BC ==
--- NOTE | 2018-06-06 09:42 | ED ---
Neurological HPI - HPI Summary HPI Summary: MAX PACE overhead at 09:22, ETA 10 minutes. This pt is an 82 y/o male presenting to [facility] via EMS for right sided weakness today. Pt reports he woke up at 05:30 this morning. He states at around 07:45 pt felt his right leg was asleep. He also notes having pressure on his right ankle. Pt tried to stand up but had difficulty with balance secondary to his leg. Denies difficulty with vision, difficulty with speech, chest pain, SOB. Pt is currently on baby aspirin and antihypertensive medications. - History of Current Complaint Stated Complaint: MAX SEXTON Hx Obtained From: Patient Onset/Duration: Sudden Onset, Still Present Timing: Sudden Onset Current Severity: Moderate Neurological Deficit Location: RLE Character: Weak Aggravating: Nothing Alleviating: Nothing Associated Signs and Symptoms: Positive: Weakness. Negative: Visual Changes, Seizure, Impaired Speech, Nausea/Vomiting, Chest Pain, Shortness of Breath - Allergy/Home Medications Allergies/Adverse Reactions: Allergies Allergy/AdvReac Type Severity Reaction Status Date / Time Penicillins Allergy Anaphylatic Verified 05/10/18 12:33 Shock Home Medications: Home Medications Albuterol HFA INHALER* [Ventolin HFA Inhaler*] 1 - 2 puff INH Q4H PRN 06/06/18 [ History Confirmed 06/06/18] Aspirin [Aspirin EC] 81 mg PO DAILY 06/06/18 [History Confirmed 06/06/18] Calcium Carbonate/Vitamin D3 [Calcium 600 + Vit D Tablet] 1 each PO BID [History Confirmed 06/06/18] Mometasone NASAL (NF) [Nasonex (NF)] 1 spray .SEE ORDER BID PRN MDD 2 06/06/18 [ History Confirmed 06/06/18] Olopatadine 0.1% OPHTH (NF) [Patanol 0.1% OPHTH (NF)] 1 - 2 drop BOTH EYES BID PRN 06/06/18 [History Confirmed 06/06/18] Tiotropium Brom/Olodaterol(NF) [Stiolto Respimat Inh [place] (60 puff)(NF)] 2 puff INH DAILY 06/06/18 [History Confirmed 06/06/18] PMH/Surg Hx/FS Hx/Imm Hx Endocrine/Hematology History: Denies: Hx Diabetes Cardiovascular History: Reports: Hx Hypertension Respiratory History: Reports: Hx Asthma, Hx Chronic Obstructive Pulmonary Disease (COPD), Hx Pneumonia GI History: Denies: Hx Ulcer Neurological History: Denies: Hx Transient Ischemic Attacks (TIA) Psychiatric History: Denies: Hx Schizophrenia - Surgical History Surgery Procedure, Year, and Place: Cataracts 05/15 - Family History Known Family History: Positive: Hypertension - Social History Alcohol Use: None Substance Use Type: Reports: None Smoking Status (MU): Former Smoker Review of Systems Negative: Fever, Chills Negative: Blurred Vision, Diplopia, Other - difficulty with vision Negative: Chest Pain Negative: Shortness Of Breath Neurological: Other - NEG: difficulty with speech Positive: Weakness - right sided All Other Systems Reviewed And Are Negative: Yes Physical Exam - Summary Physical Exam Summary: Appearance: Well appearing, no pain distress Skin: warm, dry, reflects adequate perfusion Head/face: normal Eyes: EOMI, JOSE RAMON ENT: normal Neck: supple, non-tender Respiratory: CTA, breath sounds present Cardiovascular: RRR, pulses symmetrical Abdomen: non-tender, soft Bowel: present Musculoskeletal: normal, strength/ROM intact Neuro: mild dysarthria, drift to the right leg Triage Information Reviewed: Yes Vital Signs On Initial Exam: Initial Vitals Temp Pulse Resp BP Pulse Ox 98.4 F 82 16 173/85 91 06/06/18 09:38 06/06/18 09:38 06/06/18 09:38 06/06/18 09:38 06/06/18 09:38 Vital Signs Reviewed: Yes - [place] Coma Scale Best Eye Response: 4 - Spontaneous Best Motor Response: 6 - Obeys Commands Best Verbal Response: 5 - Oriented Coma Scale Total: 15 Diagnostics - Laboratory Result Diagrams: 06/06/18 09:52 06/06/18 09:52 Lab Statement: Any lab studies that have been ordered have been reviewed, and results considered in the medical decision making process. - Radiology Chest XR Radiology Interpretation Completed By: Radiologist Summary of Radiographic Findings: IMPRESSION: Findings suggestive of COPD, no evidence for acute finding. Dr. Holloway has reviewed this report. - CT Brain CT CT Interpretation Completed By: Radiologist Summary of CT Findings: IMPRESSION: CT findings are consistent with microvascular disease and age indeterminant lacunar infarctions at the bilateral basal ganglia. There are punctate hyperattenuating foci in the subarachnoid area of the left occipital lobe as well as punctate hyperattenuating focus at the corticomedullary junction of the left parietal lobe with Hounsfield units measuring greater than 70 and therefore most likely calcium as opposed to acute hemorrhage. Imaging findings were reviewed with a colleage radiologist before conveying the above results to Dr. Ordoñez over the telephone at 1002 hours on June 06, 2018. Dr. Holloway has reviewed this report. CTA Head/Neck CT Interpretation Completed By: Radiologist Summary of CT Findings: IMPRESSION: 1. Atherosclerosis. 2. No internal carotid artery stenosis by nascet criteria. 3. No aneurysm, vascular malformation, occlusion, or stenosis of the visualized intracranial circulation. Dr. Holloway has reviewed this report. - EKG 09:56 Cardiac Rate: NL - at 85 bpm EKG Rhythm: Sinus Rhythm ST Segment: Normal Summary of EKG Findings: Normal axis. Normal interval. Normal ST. NIH Scale - NIH Scale Level of Consciousness: Alert/Keenly Responsive Ask Patient the Month and His/Her Age: Both Correct Ask Pt to Open/Close Eyes and Raw Sampler/Release Non-Paretic Hand: Both Correctly Best Gaze (Only Horizontal Eye Movement): Normal Visual Field Testing: No Visual Loss Facial Paresis-Pt to Smile & Close Eyes or Grimace Symmetry: Normal/Symmetrical Motor Function - Right Arm: No Drift-Holds 10 Seconds Motor Function - Left Arm: No Drift-Holds 10 Seconds Motor Function - Right Leg: Drifts LT 10 seconds Motor Function - Left Leg: No Drift-Holds 10 Seconds Limb Ataxia-Must be out of Proportion to Weakness Present: Present in One Limb Sensory (Use Pinprick to Test Arms/Legs/Trunk/Face): Normal Best Language (Describe Picture, Name Items): Some Loss Dysarthria (Read Several Words): Normal Extinction and Inattention: No Abnormality Total Score: 3 Re-Evaluation - Re-Evaluation First Eval Re-Evaluation Time: 09:39 Comment: Consult initiated immediately upon arrival by Dr. Ordoñez at 09:40. Second Eval Re-Evaluation Time: 10:40 Comment: NIH is now 0 after receiving tPA. Course/Dx - Course Course Of Treatment: Door to MD at 0937. Consult initiated immediately by Dr. Ordoñez. Door to CT at 0941. TPA bolus infused at 0958. Door to CT read at 1001. Infusion of TPA started at 1000. Order CTA per Dr. Ordoñez at 1002. Patient presented with right-sided stroke symptoms that began at 7:45 AM. He was inside the window for TPA infusion. He had no contraindications for this. A CT of the head was performed and there were concerns for a tiny punctate areas of calcification versus hemorrhage. This is read as negative for hemorrhage by radiology. Neurologist is at the bedside and TPA was started. The patient's right-sided symptoms quickly improved. The ICU physician came to the bedside to evaluate. The patient will be admitted to the ICU. His blood pressure never required treatment as it remained under 180. - Differential Dx Differential Diagnoses Neuro: Positive: Other - Ischemic stroke, hemorrhagic stroke, uncontrolled blood pressure - Diagnoses Provider Diagnoses: Acute CVA (cerebrovascular accident), Elevated blood pressure reading During the Visit The Following Alert/Code Occurred: Code Pace - overhead at 09: 22, ETA 10 minutes - Physician Notifications Discussed Care Of Patient With: Reinaldo Mcdaniels Time Discussed With Above Provider: 10:41 Instructed by Provider To: Admit As Inpatient - Critical Care Time Critical Care Time: 30-74 min - 30 minutes - CCT is EXCLUSIVE of separately billable procedures Discharge - Sign-Out/Discharge Documenting (check all that apply): Patient Departure - Admit to [facility] All imaging exams completed and their final reports reviewed: Yes - Discharge Plan Condition: Guarded Disposition: ADMITTED TO [facility] - Billing Disposition and Condition Condition: GUARDED Disposition: Admitted to [facility] - Attestation Statements Document Initiated by Scribe: Yes Documenting Scribe: Qian Raphael Provider For Whom Scribe is Documenting (Include Credential): Mauricio Holloway MD Scribe Attestation: Qian Ogden, scribed for Mauricio Holloway MD on 06/06/18 at 1401. Scribe Documentation Reviewed: Yes Provider Attestation: The documentation as recorded by the Qian goodman accurately reflects the service I personally performed and the decisions made by , Mauricio Holloway MD
[2018-06-06] MEDS ORDERED: NS 0.9% 1000 ML* 1,000 ML IV ONE (09:43)
[2018-06-06] MEDS ORDERED: Alteplase* 100 MG VIAL ONE (09:45)
[2018-06-06] MEDS ORDERED: Alteplase* 100 MG VIAL IV ONE ×2 (09:52)
[2018-06-06 09:58] LABS: ABS Basophils 0 10^3/ul (0-0.2); ABS Eosinophils 0.1 10^3/ul (0-0.6); ABS Lymphocytes 1.6 10^3/ul (1.0-4.8); ABS Monocytes 0.5 10^3/ul (0-0.8); ABS Neutrophils 3.8 10^3/ul (1.5-7.7); ABS Nucleated RBC 0 10^3/ul; Eosinophil % 1.1 % (0-6); Hematocrit 44 % (42-52); Hemoglobin 14.7 g/dl (14.0-18.0); Mean Corpuscular HGB Conc 34 g/dl (31-36); Mean Corpuscular Hemoglobin 32 pg (27-31); Mean Corpuscular Volume 94 fL (80-94); Mean Platelet Volume 8.3 fL (7.4-10.4); Nucleated Red Blood Cells % 0.2; Platelet Count 173 10^3/ul (150-450); Red Blood Count 4.64 10^6/ul (4.00-5.40); Red Cell Distribution Width 14 % (10.5-15)
[2018-06-06 10:07] LABS: INR 0.91 (0.77-1.02)
[2018-06-06 10:20] LABS: EGFR Non-African American 72.2 (>60)
--- OUTSIDE RECORDS SUMMARY | 2018-06-06 10:21 | XMS REPORT | Continuity of Care Document ---
:1935 External Reference #:[id number] Author Name Katarzyna Shankar Care Team Providers Name Role Phone Alma Rosa Mann M.D. Care Team Information Fleet Mechanic Unavailable Reema Tomas PA-C Primary Care Physician Unavailable Payers Type Date Identification Numbers Payment Provider Subscriber Policy Number: [id number] Medicare Edvin Neely PayID: [id number] [facility] [place] [address] Effective: 2011 Policy Number: [id number] [facility] Edvin Neely PayID: [id number] [address] [address] [place] [address] Advance Directives Description No Information Available Problems [...] Unknown Sodium 0000 mouth every day Avodart 00/ Active Capsules Unknown 0000 Olopatadine HCL / [...] - affected 04/30/ area 2017 Advair Diskus / Hx Aerosol 500-50mcg 1unit 1 puff Unknown 0000 - /Dose s twice 04/30/ daily 2018 Advair Diskus 00/00/ Hx Aerosol 100-50mcg 1unit 1 puff Unknown 0000 - /Dose s bid 2017 Lisinopril / Hx Tablets 10mg Unknown - 2017 Multivitamin // Hx qd Unknown - 2017 Vitamin C / Hx 250mg Unknown - 2017 Aspirin / Hx Tablets DR 81mg qday Unknown - 2017 Avodart / Hx Capsules 0.5mg Unknown - 2017 Calcium / Hx 600mg Unknown 0000 - 2017 Immunizations [...] Test Result H/L Range Note Laboratory test 05/10/2018 [facility] Sedimentation Rate 22 mm/ hr High 0-20 1, 2 finding [address] [place] [address] [phone] Laboratory test 05/03/2018 [facility] Surgical Pathology SEE RESULT [address] [place] [address] 1 H53.2, G93.81, 2 Method: Sediplast Modified Maame 3 SEE RESULT BELOW Name: EDVIN NEELY : [address]: George Perez MD Acct: [id number] Unit: [id number] AGE: 82 Location: [facility] Re05/03/18 SEX: M Status: REG REF SPEC: [id number] MOLINA: 05/03/[address] [facility] [address]: George Perez MD REQ: [id number] RECD: 05/03/18 STATUS: SOUT _ ORDERED: LEVEL 4 COMMENTS: [id number] FINAL DIAGNOSIS Temporal artery, right, biopsy: -- [...] 0932 END OF REPORT DEPARTMENT OF PATHOLOGY, [address] [place] [address] Adriano Burk M.D. Director [facility] # [id number] Procedures Description No Information Available Encounters Type Date Location Provider Dx Diagnosis Office Visit 05/01/2018 10:30a Main Office George Perez M.D. H53.2 Diplopia J31.0 Chronic rhinitis Office Visit 01/15/2013 9:00a Main Office Vicki Monreal, 472.0 Rhinitis Chronic PA 995.3 Allergy Unspec 372.14 Conjunctivitis Chronic Allergic Other Office Visit 12/04/2012 1:45p Main Office Joya Watson 478.0 Hypertrophy Nasal JESSE Hughes Turbinates 472.0 Rhinitis Chronic Plan of Treatment Future Appointment(s):06/12/2018 1:15 pm - [place]a Hughes NP at Main Office
[2018-06-06] MEDS ORDERED: Iohexol 350* (CONTRAST) 500 ML MDV IV ONE (10:36)
--- NOTE | 2018-06-06 11:32 | HP ---
H&P (Free Text) History and Physical: History and Physical -- Critical Care HPI: 82y M w/pmhx of HTN, asthma/COPD; who comes to ER for sudden weakness in legs this morning at ~745am, some more right leg weakness noted. no falls/ syncope. no slurred speech as per him. no confusion. Also noted right arm weakness. no cp/sob/n/v/abd pain. no blurred vision. comes to ER at ~938, seen by ER, Stroke code called, stat CT brain done demonstrating no acute hemorrhage , likely areas of calcium only. BP 200s initially, then repeats to 160-180s, sinus rhythm. NIHSS 3 on arrival with right leg weakness, some dysarthria, some fingerpointing abn. Determined to be a candidate for tpa, started infusion at 958am. Currently in bed, awake/alert, feels better, moving all ext. Last vitals 160s systolic, HR 80s, NSR, on RA, no distress. No prior stroke history. MEdical history as above. Last NIHSS 0 ROS: negative except for pertinent positives mentioned above. NO limitations to history. PMHx: HTN, asthma/COPD PSHx: cataract surgery Family History: Hypertension Social History: Alcohol-none, Smoking-former smoker, Drug use-none Allergies: Allergies Allergy/AdvReac Type Severity Reaction Status Date / Time Penicillins Allergy Anaphylatic Verified 05/10/18 12:33 Shock Home Medications: Vit C 500mg daily, calcium 600+D 600-200mg bid, spiriva 10mg daily, lipitor 10mg daily, ventolin hfa 1-2puff/q4-6h prn, dutasteride 0.5mg daily, levoceterizine 5mg daily, olopatadine 1-2 drops each eye bid, MVI daily, asa 81 daiily, lisinopril/hctz 20-25mg daily, nasonex 50mcg each nostril 1-2x daily, stiolto respimate 2.5-2.5 2 puffs daily Tele: NSR Vitals: Vital Signs Temp 98.4 F 06/06/18 09:38 Pulse 82 06/06/18 09:38 Resp 16 06/06/18 09:38 BP 173/85 06/06/18 09:38 Pulse Ox 91 06/06/18 09:38 Intake & Output 06/05/18 06/06/18 06/06/18 18:59 06:59 18:59 Weight 89.811 kg O2/Vent: RA Infusions: heplock Current Medications: Albuterol (Ventolin Hfa Inhaler*) 1 puff INH Q4H PRN PRN Reason: SOB/WHEEZING Atorvastatin Calcium (Lipitor*) 80 mg PO ONCE ONE Stop: 06/06/18 12:03 Atorvastatin Calcium (Lipitor*) 80 mg PO 1700 MIGUEL A Non-Formulary Medication (Tiotropium Brom/Olodaterol(Nf) [Stiolto Respimat Inh [place] (60 Puff)(Nf)]) 2 puff INH DAILY MIGUEL A Physical Exam: General: awake, alert, no distress, no diaphoresis Head: normocephalic, atraumatic HEENT: no pallor, no icterus, moist mucous membranes Neck: soft, supple, no jvd, no stridor CVS: normal rate, regular, no murmur Resp: bilateral air entry, no rhales, no wheeze, no rhonchi, no acc muscle use Abdomen: soft, nontender, nondistended, bowel sounds present Ext: pulses+, warm, no edema Skin: intact Neuro: awake, alert, orientedx3, Right/Left arm 5/5, Left arm/leg 5/5, no dysarthria, CN intact Labs: Laboratory Results - last 24 hr 06/06/18 06/06/18 06/06/18 09:52 09:52 09:52 WBC 6.0 RBC 4.64 Hgb 14.7 Hct 44 MCV 94 MCH 32 H MCHC 34 RDW 14 Plt Count 173 MPV 8.3 Neut % (Auto) 63.3 Lymph % (Auto) 27.0 Nance % (Auto) 8.3 H Eos % (Auto) 1.1 Baso % (Auto) 0.3 Absolute Neuts (auto) 3.8 Absolute Lymphs (auto) 1.6 Absolute Monos (auto) 0.5 Absolute Eos (auto) 0.1 Absolute Basos (auto) 0 Absolute Nucleated RBC 0 Nucleated RBC % 0.2 INR (Anticoag Therapy) 0.91 APTT 30.4 Sodium 140 Potassium 4.2 Chloride 103 Carbon Dioxide 31 Anion Gap 6 BUN 18 Creatinine 0.99 Est GFR ( Amer) 87.4 Est GFR (Non-Af Amer) 72.2 BUN/Creatinine Ratio 18.2 Glucose 105 H Lactic Acid Calcium 9.6 Total Bilirubin 0.50 AST 19 ALT 19 Alkaline Phosphatase 81 Troponin I 0.00 Total Protein 6.9 Albumin 4.2 Globulin 2.7 Albumin/Globulin Ratio 1.6 Triglycerides 188 Cholesterol 142 LDL Cholesterol 55 HDL Cholesterol 49.2 Blood Type Antibody Screen 06/06/18 06/06/18 09:52 09:52 WBC RBC Hgb Hct MCV MCH MCHC RDW Plt Count MPV Neut % (Auto) Lymph % (Auto) Nance % (Auto) Eos % (Auto) Baso % (Auto) Absolute Neuts (auto) Absolute Lymphs (auto) Absolute Monos (auto) Absolute Eos (auto) Absolute Basos (auto) Absolute Nucleated RBC Nucleated RBC % INR (Anticoag Therapy) APTT Sodium Potassium Chloride Carbon Dioxide Anion Gap BUN Creatinine Est GFR ( Amer) Est GFR (Non-Af Amer) BUN/Creatinine Ratio Glucose Lactic Acid 1.7 Calcium Total Bilirubin AST ALT Alkaline Phosphatase Troponin I Total Protein Albumin Globulin Albumin/Globulin Ratio Triglycerides Cholesterol LDL Cholesterol HDL Cholesterol Blood Type O Positive Antibody Screen Negative Imaging: CT brain 06/06 - no acute process; small arease of calcium noted (report reviewed ) Assessment: 82y M w/pmhx of HTN, asthma/COPD; who comes to ER for sudden weakness in legs this morning at ~745am, some more right leg weakness noted. no falls/syncope. no slurred speech as per him. no confusion. Also noted right arm weakness. no cp/sob/n/v/abd pain. no blurred vision. comes to ER at ~938, seen by ER, Stroke code called, stat CT brain done demonstrating no acute hemorrhage , likely areas of calcium only. BP 200s initially, then repeats to 160-180s, sinus rhythm. NIHSS 3 on arrival with right leg weakness, some dysarthria, some fingerpointing abn. Determined to be a candidate for tpa, started infusion at 958am. Currently in bed, awake/alert, feels better, moving all ext. Last vitals 160s systolic, HR 80s, NSR, on RA, no distress. No prior stroke history. MEdical history as above. Last NIHSS 0 CVA; s/p tpa 06/06 Hypertension COPD Plan: Neuro- s/p tpa; some improvement in focal deficit. clear liquid if no change in neuro status. CT brain without acute process. Repeat CT brain if any change in NIHSS. Neuro consult. MRI brain tomoorrow? Neurochecks as per protocol. Maintain SBP <180, cardene PRN if needed. TTE. Carotid duplex. Tele monitoring for arrythmias. Statin today, asa tomorrow. bedrest. no blood draws unless needed. CVS- maintain BP <180 s/p tpa. cardene prn. hold po meds for now. start statin. Resp- RA, no distress. COPD, bronchodilators PRN. ID- afebrile. wbc normal. monitor off abx. GI- clear liquid diet; npo if change in neuro status. Renal- CR normal. no gates. monitor urine output Heme- hg stable. on asa at home. plt count okay. s/p tPA for CVA, monitor for bleeding. Endo- check hba1c and tsh Musculsk- pressure ulcer prophylaxis. Bedrest. Wounds- none Nutrition- clear liqudid diet DVT prophylaxis: SCDs GI prophylaxis: - Central Line:- Arterial Line: - Gates Cathetor: - Disposition: ICU Code Status: full code Total Critical Care time is 40 minutes, excluding procedures/teaching Reinaldo Mcdaniels MD Business Controller (Electronically Signed)
[2018-06-06] MEDS ORDERED: Albuterol HFA INHALER* 8 gm MDI INH PRN (11:54)
[2018-06-06] MEDS ORDERED: niCARdipine 0.1MG/ML IVPREMIX* 20 MG/200 ML BAG IV SCH (12:00)
[2018-06-06] MEDS ORDERED: Atorvastatin* 80 MG TAB PO ONE (12:02)
[2018-06-06 12:18] LABS: Urine Appearance Clear; Urine Blood Negative (Negative); Urine Color Straw; Urine Ketones Negative (Negative); Urine Protein Negative (Negative); Urine Specific Gravity 1.024 (1.010-1.030); Urine Urobilinogen Negative (Negative)
--- NOTE | 2018-06-06 15:51 | ECHO ---
Patient: NOHEMY CONNER [facility] Rec#: [id number] : 1935 Date: 06/06/2018 Age: 82y Height: 180.34 cm / 71.0 in Weight: 89.81 kg / 197.9 lbs Sex: M BSA: 2.1 Room#: ICU 2 Admit Date#: 06/06/2018 Type: Inpatient Referring: Reinalod Mcdaniels Reading: Mark Juarez MD Policy Change Clerk: Yesenia Ibarra,FRANKLINCS,RDMS CC: Casey HARLEY,Al Transthoracic Echocardiogram Indication: CVA BP: 170/85 HR: 69 Rhythm: NSR Findings History: HTN, COPD Technical Comments: The study is technically limited due to the patient's history of COPD. Left Ventricle: The left ventricular chamber size is normal. Mild concentric left ventricular hypertrophy is observed. Global left ventricular wall motion and contractility are within normal limits. The estimated ejection fraction is 55-60%. There is an E to A reversal in the mitral valve flow pattern suggestive of diastolic dysfunction. Left Atrium: The left atrial chamber size is normal. Right Ventricle: The right ventricular chamber size and systolic function are within normal limits. Right Atrium: The right atrium is slightly dilated. There is a patent foramen ovale with predominant [id number] shunting. A patent foramen ovale is demonstrated by agitated contrast. Aortic Valve: The aortic valve is trileaflet. The aortic valve leaflets are mildly thickened. There is no evidence of aortic regurgitation. There is no evidence of aortic stenosis. Mitral Valve: The mitral valve leaflets are mildly thickened. There is no evidence of mitral regurgitation. There is no evidence of mitral stenosis. Tricuspid Valve: The tricuspid valve leaflets are normal. There is trace tricuspid regurgitation. Unable to estimate the right ventricular systolic pressure. Pulmonic Valve: The pulmonic valve appears normal. There is no evidence of pulmonic regurgitation. Pericardium: There is no significant pericardial effusion. Aorta: The ascending aorta is not well visualized. The aortic arch is not well visualized. The aortic root is normal in size. Pulmonary Artery: The main pulmonary artery is not well visualized. Venous: The inferior vena cava is dilated. There is a greater than 50% respiratory change in the inferior vena cava dimension. Contrast: Intravenous agitated saline contrast was used to assess intracardiac shunting. Summary: There are changes noted when compared to the previous study done on 07/05/2007, EF is now 55-60% instead of 50-55% then. Bubble PFO is new (bubble study was not done then). Conclusions The left ventricular chamber size is normal. The estimated ejection fraction is 55-60%. There is an E to A reversal in the mitral valve flow pattern suggestive of diastolic dysfunction. There is a patent foramen ovale with predominant hagso-pm-bdki shunting. A patent foramen ovale is demonstrated by agitated contrast. There is trace tricuspid regurgitation. Measurements Name Value Normal Range RVDdMajor (2D) 2.9 cm (2.2 - 4.4) RAd ISD 4CH 4.2 cm (3.4 - 4.9) RA (A4C)W 4.8 cm (2.9 - 4.6) IVSd (2D) 1.1 cm (0.6 - 1) LVPWd (2D) 1.4 cm (0.6 - 1) LVIDd (2D) 4.7 cm (3.6 - 5.4) LVIDs (2D) 2.7 cm - LV FS (2D) 42 % (25 - 45) EF Teichholz (2D) 73 % - Aortic Annulus 2.6 cm (1.4 - 2.6) Ao root diameter (2D) 3.5 cm (2.1 - 3.5) LA dimension (AP) 2D 2.8 cm (2.3 - 3.8) LAd ISD 4CH 3.7 cm (2.9 - 5.3) LA ISD 4CH W 3.9 cm (2.5 - 4.5) Name Value Normal Range LA ESV SP 4CH (A/L) 42.74 ml - LA ESV SP 4CH (MOD) 40.13 ml - Name Value Normal Range MV E-wave Vmax 0.6 m/sec - MV deceleration time 240 msec - MV A-wave Vmax 0.7 m/sec - MV E:A ratio 0.8 ratio - LV septal e' Vmax 0.09 m/sec - LV lateral e' Vmax 0.08 m/sec - LV E:e' septal ratio 7 ratio - LV E:e' lateral ratio 7.5 ratio - Name Value Normal Range AV Vmax 1.2 m/sec - AV VTI 25 cm - AV peak gradient 6 mmHg - AV mean gradient 3.2 mmHg - LVOT Vmax 0.9 m/sec - LVOT VTI 20 cm - LVOT peak gradient 3.2 mmHg - LVOT mean gradient 1.6 mmHg - HIRAL Vmax 0.4 m/sec - Name Value Normal Range RAP 8 mmHg - IVC diameter 2.4 cm - Name Value Normal Range PV Vmax 1.1 m/sec - PV peak gradient 5 mmHg -
--- NOTE | 2018-06-06 16:21 | CONS ---
CONSULTATION REPORT: DATE OF CONSULT: 06/06/18 PATIENT OF: Dr. Mcdaniels and Dr. Holloway. HISTORY OF PRESENT ILLNESS: This is an 82-year-old right-handed man, who woke up in his usual state of health at about 5:30 this morning. At 7:45, he felt his leg was asleep and had difficulty with balance and standing on that leg. Symptoms then improved, but then at 8:45, he got worse and had difficulty with weakness in his right leg and arm. He was brought in by ambulance as a code lazo and was brought in at 9:37, was evaluated immediately by Dr. Holloway and myself. CT scan was verbally told me by Dr. Garcia and Dr. Wallace at 9:54 and I reviewed the films with them. It was unclear who is going to officially read the films. Dr. Joiner was called with the preliminary and then rechecked the results with Dr. Garcia and called back at 10:00. He has had no prior stroke or focal neurological deficits. He had some double vision about a month ago that passed. He has had no recent surgeries. He is on no blood thinners. PAST MEDICAL HISTORY: He has a history of hypertension. He has had a history of asthma and COPD. He has had no hyperlipidemia. MEDICATIONS: Include: 1. Ventolin inhaler 2 puffs as needed. 2. Aspirin 81 mg daily. 3. Calcium carbonate 600/vitamin D 1 tab b.i.d. 4. Nasonex spray b.i.d. 5. Eye drops. FAMILY HISTORY: Significant for hypertension. SOCIAL HISTORY: He is a former smoker, but does not smoke now. No alcohol use. REVIEW OF SYSTEMS: Negative in all 14 spheres, other than HPI. There have been no speech problems with this. There has been some numbness in the right leg. PHYSICAL EXAM: I evaluated him at 9:37 until the 10 and again at 12:15 today. Initial Vitals: Temperature 98.4, pulse 82, respirations 16, blood pressure 173 /85, pulse ox was 91%. On exam, he is alert and oriented with normal speech and comprehension other than he had mild dysarthria when he first came in. Cranial nerves II through XII were intact. Fundi was benign. Motor exam revealed normal tone and strength currently. When he first came in, he had drift of his right leg at 10 seconds. No drift of his arms or his left leg. He had limb ataxia in his right leg. Total NIH Stroke Scale was 3. His strength was 5/5 other than the drift in his leg. Sensation was intact to touch and pin. Chest: Clear. Cardiovascular: Regular rate and rhythm. Abdomen was soft with positive bowel sounds. His initial NIH Stroke Scale was 3. His symptoms appeared to be resolved now following t-PA. His t-PA boluses was infused at 9:58. DIAGNOSTIC STUDIES/LAB DATA: His CT scan, I reviewed and had it reviewed by the radiologist, because of small what appeared to be spots of calcium including in his left posterior parietal lobe. This was read as calcium by Dr. Garcia and not hemorrhage. He also had some evidence of old lacunar infarcts in his bilateral basal ganglia. His CTA showed atherosclerosis, but no other findings. Initial blood work included normal CBC, INR, PTT. His LDL was 55. Glucose was 105. IMPRESSION AND PLAN: Edvin had a stroke involving leg more than arm, but his arm was involved at one point. He received t-PA within 20 minutes or so of arrival and he is clinically asymptomatic at this point. I have discussed the risks of bleeding with him from the t-PA before the t-PA was infused. His CTA is negative for large vessel occlusion, so he is being admitted to the ICU and will be observed and get an MRI scan tomorrow morning roughly 24 hours after his t-PA and then, he will be started presumably on antiplatelet therapy. We will get a repeat LDL tomorrow before making decision of whether to treat him with ongoing statins. Thank you for sharing his case. [id number]/[facility] #: [id number] [place]
[2018-06-06] MEDS ORDERED: Atorvastatin* 80 MG TAB PO SCH (17:00)
[2018-06-07] MEDS ORDERED: Tiotropium Brom/Olodaterol(NF) 4 GM 60 PUFF MDI INH SCH (09:00)
[2018-06-07] MEDS: Aspirin EC TAB* 81 MG TAB.EC PO SCH (10:03)
--- NOTE | 2018-06-07 10:53 | PN ---
Progress Note - Progress Note Date of Service: 06/07/18 Note: Progress Note -- Critical Care 24 hour events: -no events on tele overnight -awake/alert; no bleeding; moving all ext; complaints of no weakness/numbness/ dizziness/headache -tolerating liquid diet po -BP has been 140-150s, sometimes lower; no cardene required Tele: NSR Vitals: Vital Signs Temp 98.0 F 06/07/18 08:00 Pulse 69 06/07/18 10:01 Resp 21 06/07/18 10:01 BP 122/59 06/07/18 10:19 Pulse Ox 93 06/07/18 10:01 Intake & Output 06/06/18 06/07/18 06/07/18 18:59 06:59 18:59 Intake Total 600 960 Output Total 200 975 Balance 400 -15 Weight 84 kg 84.1 kg Intake: Oral 600 960 Output: Urine 200 975 O2/Vent: RA Infusions: heplock Current Medications: Albuterol (Ventolin Hfa Inhaler*) 1 puff INH Q4H PRN PRN Reason: SOB/WHEEZING Aspirin (Aspirin Ec Tab*) 81 mg PO DAILY [facility] Last Admin: 06/07/18 10:03 Dose: 81 mg Atorvastatin Calcium (Lipitor*) 80 mg PO 1700 MIGUEL A Tiotropium [place]/Olodaterol (Stiolto Respimat Inh Rydal (60 Puff)(Nf)) 2 puff INH DAILY [facility] Last Admin: 06/07/18 09:58 Dose: Not Given Physical Exam: General: awake, alert, no distress, no diaphoresis Head: normocephalic, atraumatic HEENT: no pallor, no icterus, moist mucous membranes Neck: soft, supple, no jvd, no stridor CVS: normal rate, regular, no murmur Resp: bilateral air entry, no rhales, no wheeze, no rhonchi, no acc muscle use Abdomen: soft, nontender, nondistended, bowel sounds present Ext: pulses+, warm, no edema Skin: intact Neuro: awake, alert, orientedx3, Right/Left arm 5/5, Left arm/leg 5/5, no dysarthria, CN intact Labs: Laboratory Results - last 24 hr 06/06/18 06/06/18 06/06/18 09:52 09:52 11:58 Sodium 140 Potassium 4.2 Chloride 103 Carbon Dioxide 31 Anion Gap 6 BUN 18 Creatinine 0.99 Est GFR ( Amer) 87.4 Est GFR (Non-Af Amer) 72.2 BUN/Creatinine Ratio 18.2 Glucose 105 H Hemoglobin A1c 4.8 Calcium 9.6 Total Bilirubin 0.50 AST 19 ALT 19 Alkaline Phosphatase 81 Troponin I 0.00 Total Protein 6.9 Albumin 4.2 Globulin 2.7 Albumin/Globulin Ratio 1.6 Triglycerides 188 Cholesterol 142 LDL Cholesterol 55 HDL Cholesterol 49.2 TSH 1.83 Urine Color Straw Urine Appearance Clear Urine pH 6.0 Ur Specific Douglas 1.024 Urine Protein Negative Urine Ketones Negative Urine Blood Negative Urine Nitrate Negative Urine Bilirubin Negative Urine Urobilinogen Negative Ur Leukocyte Esterase Negative Urine Glucose Negative Urine Ascorbic Acid * A Imaging: CT brain 06/06 - no acute process; small arease of calcium noted (report reviewed ) Assessment: 82y M w/pmhx of HTN, asthma/COPD; who comes to ER for sudden weakness in legs this morning at ~745am, some more right leg weakness noted. no falls/syncope. no slurred speech as per him. no confusion. Also noted right arm weakness. no cp/sob/n/v/abd pain. no blurred vision. comes to ER at ~938, seen by ER, Stroke code called, stat CT brain done demonstrating no acute hemorrhage , likely areas of calcium only. BP 200s initially, then repeats to 160-180s, sinus rhythm. NIHSS 3 on arrival with right leg weakness, some dysarthria, some fingerpointing abn. Determined to be a candidate for tpa, started infusion at 958am. Currently in bed, awake/alert, feels better, moving all ext. Last vitals 160s systolic, HR 80s, NSR, on RA, no distress. No prior stroke history. MEdical history as above. Last NIHSS 0 CVA; s/p tpa 06/06 Hypertension COPD Plan: Neuro- s/p tpa 06/06; No focal deficit on exam noted. NIH 0. ambulating in room lightly himself. BP stable overnight. MRI brain ordered for this morning. has been >24 hours, will start ASA after MRI. advance diet. CTA head 06/06 without obstruction. No arrhythmias on tele noted. TTE wtih PFO on bubble study, discussed with patient, possibility of this being the source and if recurrent episodes may have to look closer at this PFO. Statin PO, ASA. oob to chair, pt/ ot. neurology consult. CVS- maintain BP <180; s/p tpa. statin/aspirin Resp- RA, no distress. COPD, bronchodilators PRN. ID- afebrile. wbc normal. monitor off abx. GI- advance to cardiac diet Renal- CR normal. no gates. monitor urine output Heme- hg stable. on asa at home, restart if MRI okay. plt count okay. s/p tPA for CVA, monitor for bleeding. Endo- hba1c 4.8, tsh 1.8 Musculsk- pressure ulcer prophylaxis. oob, pt/ot Wounds- none Nutrition- cardiac diet DVT prophylaxis: SCDs GI prophylaxis: - Central Line:- Arterial Line: - Gates Cathetor: - Disposition: if MRI okay, may be able to transfer to tele today with continued neuro workup Code Status: full code Reinaldo Mcdaniels MD Act English Tutor (Electronically Signed)
[2018-06-07] MEDS: Tiotropium CAP.INH* CAP.INH/18 MCG (USE ORDER SET !) INH SCH (13:42)
[2018-06-07] MEDS ORDERED: Atorvastatin* 80 MG TAB PO SCH (17:00)
[2018-06-07] MEDS: Atorvastatin* 40 MG TAB PO SCH (17:34)
[2018-06-07] MEDS: CMC:Formoterol 20 MCG/2ML NEB (NF) 10 MCG/ML NEB.SOLN INH SCH (20:10)
--- NOTE | 2018-06-08 03:30 | PN ---
NEUROLOGICAL FOLLOWUP: DATE OF SERVICE: 06/07/18 - ROOM #449 HISTORY: He has no complaints. He is walking fine. No weakness. No numbness. No speech problems. No visual symptoms and he feels completely back to normal following his small stroke and TPA yesterday. He tells me that in April or May, he had some double vision. There was a biopsy taken. They called Dr. Infante, who is trying to track down his medical records, and will be calling me back about this. He had been taking aspirin prior to this event and was restarted on aspirin. His Lipitor was increased to 80. He is on his inhaler, his Spiriva and Ventolin puff. REVIEW OF SYSTEMS: Negative. PHYSICAL EXAMINATION: Vital Signs: Blood pressure 152/55, pulse 60, respirations 20, temperature 98. He is alert and oriented with normal speech and comprehension. Cranial nerves II through XII are intact. Fundi were benign. Motor exam revealed normal tone and strength and coordination. Sensation intact to light touch. Reflexes 1 and equal, downgoing toes. Chest: Clear. Cardiovascular: Regular rate and rhythm. Abdomen: Soft, positive bowel sounds. DIAGNOSTIC AND LABORATORY DATA: His MRI showed a small subacute nonhemorrhagic stroke in his left basal ganglia and anteroparietal lobe. His echo transthoracic showed a PFO with right to left shunt. No clot was visualized. I discussed this with Mr. Neely that he has had a stroke, that he has no residual clinical symptoms from the stroke. His CTA head, some atherosclerotic disease and that is probably the mechanism of his stroke and I would have him on aspirin and Plavix for 3 months' time and then just Plavix alone. I have discussed this with Dr. Mcdaniels. His LDL yesterday was 55 and we can do a fasting lipid but if remains under 70, I would not change his dose of Lipitor. I have a call in to Dr. Infante, as mentioned above, to see if there is something in his recent workup that would be significant for his current neurological disease; but it was a thought that, I am not sure, but Mr. Neely's history raises a possibility of possible scientology arteritis, just in terms of the testing that was done and Dr. Infante will be calling me back. I think that the PFO is most likely an incidental finding, but it would be reasonable for him to even see his platform loader or see if the platform loader here thinks that further testing would be warranted. Thank you for sharing his case. [id number]/[facility] #: [id number] [place]
[2018-06-08 07:07] LABS: Hematocrit 43 % (42-52); Hemoglobin 14.5 g/dl (14.0-18.0); Mean Corpuscular HGB Conc 34 g/dl (31-36); Mean Corpuscular Hemoglobin 32 pg (27-31); Mean Corpuscular Volume 95 fL (80-94); Mean Platelet Volume 8.9 fL (7.4-10.4); Platelet Count 180 10^3/ul (150-450); Red Cell Distribution Width 14 % (10.5-15); White Blood Count 6.7 10^3/ul (3.5-10.8)
[2018-06-08] MEDS: Tiotropium CAP.INH* CAP.INH/18 MCG (USE ORDER SET !) INH SCH (07:24)
[2018-06-08] MEDS: CMC:Formoterol 20 MCG/2ML NEB (NF) 10 MCG/ML NEB.SOLN INH SCH ×2 (07:24→20:08)
[2018-06-08 07:28] LABS: EGFR Non-African American 77.6 (>60)
[2018-06-08] MEDS: Lisinopril TAB* 10 MG PO SCH (08:25)
[2018-06-08] MEDS: Clopidogrel TAB* 75 MG PO SCH (08:25)
[2018-06-08] MEDS: Aspirin EC TAB* 81 MG TAB.EC PO SCH (08:25)
[2018-06-08] MEDS ORDERED: Spiriva Inhaler DEVICE* 1 EACH DEVICE INH ONE (09:00)
--- NOTE | 2018-06-08 13:36 | CONS ---
CC: Dr. Al Peña * CONSULTATION NOTE: DATE OF CONSULT: 06/08/18 REFERRING PHYSICIANS: Dr. Jens Ordoñez and Dr. Reinaldo Mcdaniels. REASON FOR CARDIOLOGY CONSULTATION: PFO assessment in patient with stroke. HISTORY OF PRESENT ILLNESS: Mr. Neely is a pleasant 82-year-old gentleman who had an episode of double vision early last month felt due to temporal arteritis. Two days ago, he developed left leg followed by left arm weakness and paresthesias and has been diagnosed after evaluation by the neurologist with small subacute nonhemorrhagic stroke in his left basal ganglia and anterior parietal lobe. The patient had an echocardiogram completed 06/06/18 with agitated saline infusion, of which I reviewed the images myself. This shows really no more than a swgkj-ux-[id number] size patent foramen ovale with normal left ventricular ejection fraction, normal cardiac chamber sizes and no evidence of right heart failure (please see also that report for further details ). Patient himself denies chest pain or recent fainting (he last fainted when he was in the standing at attention many years ago). He does note that he has been short of breath for 40 years. He denies palpitation. PAST MEDICAL HISTORY: Includes hypertension, asthma, double vision in early May 2018 due to TA.. BPH and hyperlipidemia. MEDICATIONS: On admission here include: 1. Vitamin C. 2. Calcium. 3. Spiriva 10 mg once a day. 4. Lipitor 10 mg once a day. 5. Ventolin. 6. Dutasteride 0.5 mg once a day. 7. Levocetirizine 5 mg once a day. 8. Aspirin 81 mg once a day. 9. Lisinopril hydrochlorothiazide 20/25 mg once a day. 10. Nasonex. ALLERGIES TO MEDICATIONS: AMPICILLIN, which causes him anaphylactic shock and PENICILLIN, which causes him ooziness. FAMILY HISTORY: Positive for cancer in his mother, stroke in his half sister. No family history of cardiac disease or diabetes. SOCIAL HISTORY: He does not smoke cigarettes, abuse alcohol, nor use illicit drugs. He is for 61 years. 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 He is a high school graduate. He does not do regular aerobic exercise. REVIEW OF SYSTEMS: The patient denies cancer, vomiting, coughing up blood, bright red blood per rectum, bleeding stomach ulcers, renal calculi, cholelithiasis. He has asthma. He denies emphysema. He has had pneumonia, not requiring hospitalization. He denies tuberculosis, sleep apnea, home oxygen use, diabetes, hypertension. He states he has been diagnosed with diastolic congestive heart failure. He denies prior RI, cardiac surgery, cardiac murmurs, palpitations. Of note, his transthoracic echocardiogram completed 06/06/18 did reveal evidence of diastolic dysfunction and the patient is maintained chronically on diuretics as noted above with hydrochlorothiazide. Denied psychiatric illnesses. He denies lupus, psoriasis, seizures, Parkinson 's disease, myasthenia gravis, thyroid disorders, liver disorders, kidney disorders. He does have pain in the back of his legs when he walks. He has occasional peripheral edema. He has GERD if he "over eats." All other review of systems are negative x14 except as per this medical record. PHYSICAL EXAM: Height 5 feet 10 inches, weight 185 pounds. Temperature 97.7 degrees Fahrenheit, pulse 65, respiratory rate 18, blood pressure 138/51, O2 saturation 95%. On general exam, he is a pleasant anxious gentleman, in no acute distress. HEENT shows cranium is normocephalic and atraumatic. There are moist mucosal membranes. Neck veins are not distended. There are no carotid bruits visible. Skin: Warm and perfused. Affect is appropriate. He appears oriented. No significant kyphoscoliosis on back exam. Lungs are clear to auscultation. No wheezes. No rales. Cardiac Exam: S1, S2. Regular rate. No significant murmurs, rubs, or gallops. PMI is nondisplaced. Abdomen: Soft, nondistended, appears benign. Extremities: Without significant edema. Pulses appear grossly intact including normal 3+ bilateral dorsalis pedis and posterior tibial pulses in his bilateral lower extremities. DIAGNOSTIC STUDIES/LAB DATA: The patient completed a 12-lead EKG on 06/06/18, which showed sinus rhythm at 85 beats per minute felt to be within normal limits. Last transthoracic echocardiogram as described above. White blood cell count 6.7, hematocrit 43, platelet count 180. INR 0.91. Sodium 141, potassium 4.3, chloride 105, bicarbonate 29, BUN 20, creatinine 0.93. TSH 1.83, troponin 0 on admission. ALT 19. IMPRESSION: Mr. Neely is an 82-year-old gentleman with history of hypertension , hyperlipidemia, admitted with nonhemorrhagic stroke while only on aspirin. He has subsequently been started on aspirin/Plavix combination for some time to be followed by Plavix life long per the neurologist. He has been incidentally discovered to have no more than bhofu-ay-wlhdtglt sized patent foramen ovale by agitated saline infusion on his recent echocardiogram. I reviewed this in detail with the patient including that patent foramen ovale are present in 15% of the general population and closure of such (if even feasible which may not be in this patient's case given that his is not very sizable) has not been definitively shown to reduce risk of recurrent stroke. RECOMMENDATIONS: 1. The patient will continue aspirin/Plavix antiplatelet regimen as per Neurology and will be transitioned to Plavix only lifelong. Again his patent foramen ovale is not very sizable in his echocardiogram and no evidence of right heart dysfunction, so I think for now it is reasonable to hold on further evaluation of PFO closure unless he would have recurrent LOGISTICS OPERATIONS MANAGER symptoms despite antiplatelet therapy with current aspirin/Plavix combination followed by Plavix life long. I do recommend titration of statin therapy to keep LDL less than 70 mg/dL and continued hypertension management. 2. The patient will follow up with myself in 1 to 2 months post discharge and at that time, I can further evaluate his concern for shortness of breath including with potential ischemic evaluation. If we did want to move forward with PFO closure in the future, I would next proceed with transesophageal echocardiogram to better delineate that but again that does not appear required at this time. The above has been discussed in detail with the patient with all questions answered and he is in agreement with these recommendations, including cardiac follow up with myself. Dear Dr. Mcdaniels and Dr. Ordoñez, many thanks for asking me to participate in the cardiovascular consultation care of Mr. Neely. Please do not hesitate to contact me if you have any questions or concerns regarding the patient's cardiovascular consultative care. [id number]/[facility] #: [id number] MTDD
--- NOTE | 2018-06-08 16:52 | PN ---
Subjective Date of Service: 06/08/18 Interval History: Pt seen and examined. Meds and labs reviewed. CC: N/A ROS: Denied MARTÍNEZ/dizziness, F/C, N/V, CP, SOB, increased cough, sputum production , abd pain, diarrhea, constipation, dysuria, myalgias, arthralgias, throat pain , and new skin lesions. The rest of the 14 point ROS are unremarkable. PHYSICAL EXAM: GEN APPEARANCE: Awake, not in acute distress HEENT: NC/AT, PERRLA, moist oral mucosa, (-) throat erythema NECK: Soft, supple, (-) cervical LAD, (-)JVD HEART: S1S2 WNL, RRR, No MRG CHEST: CTA, BL, GAE, No W/R/R ABD: Soft, ND/NT, NABS 4x Q EXT: No C/C/E SKIN: Warm to touch PSYCH: No active psychosis, hallucinations, depression, SI/HI Objective Active Medications: Albuterol (Ventolin Hfa Inhaler*) 1 puff INH Q4H PRN PRN Reason: SOB/WHEEZING Aspirin (Aspirin Ec Tab*) 81 mg PO DAILY [facility] Last Admin: 06/08/18 08:25 Dose: 81 mg Atorvastatin Calcium (Lipitor*) 40 mg PO 1700 [facility] Last Admin: 06/07/18 17:34 Dose: 40 mg Clopidogrel Bisulfate (Plavix Tab*) 75 mg PO DAILY [facility] Last Admin: 06/08/18 08:25 Dose: 75 mg Formoterol Fumarate (Perforomist Neb.Soln*(Nf)) 20 mcg INH BID [facility] Last Admin: 06/08/18 07:24 Dose: 20 mcg Lisinopril (Prinivil Tab*) 20 mg PO DAILY [facility] Last Admin: 06/08/18 08:25 Dose: 20 mg Tiotropium [place] (Spiriva Cap.Inh*) 1 cap INH DAILY [facility] Last Admin: 06/08/18 07:24 Dose: 1 cap Vital Signs - 8 hr 06/08/18 06/08/18 06/08/18 08:57 11:46 15:27 Temperature 98.4 F 98.0 F Pulse Rate 64 62 Respiratory 18 18 16 Rate Blood Pressure 114/44 120/51 (mmHg) O2 Sat by Pulse 96 98 Oximetry Oxygen Devices in Use Now: None Result Diagrams: 06/08/18 06:49 06/08/18 06:49 Microbiology and Other Data: Microbiology 06/06/18 13:00 Nasal Screen MRSA (PCR) - Final Nasal Mrsa Not Detected Assess/Plan/Problems-Billing Assessment: - Patient Problems (1) CVA (cerebral vascular accident) Current Visit: Yes Status: Acute Code(s): I63.9 - CEREBRAL INFARCTION, UNSPECIFIED SNOMED Code(s): 027251586 Comment: -S/P TPA on 06/06 -MRI: Punctate foci w/left basal ganglia and anterior parietal lobe consistent w /subacute non-hemorrhagic infarct; chronic appearing lacunar infarct of basal ganglia BL and left mid brain. -TTE: EF 55-60%, diastolic dysfunction; (+)PFO -Issue of possible temporal arteritiswill await F/U by Dr. Ordoñez -Will check ESR and CRP -Appreciate Dr. Hairston input: PF considered to be small w/no evidence of right heart dysfunction; hold further eval unless with new neurological S/S while on DAPT and statins; F/U in 1-2 mos post D/C with Cards (2) PFO (patent foramen ovale) Current Visit: Yes Status: Acute Code(s): Q21.1 - ATRIAL SEPTAL DEFECT SNOMED Code(s): 250345692 Comment: -As above (3) Hypertension Current Visit: Yes Status: Acute Code(s): I10 - ESSENTIAL (PRIMARY) HYPERTENSION SNOMED Code(s): 70718145 Comment: -Continue Lisinopril (4) DVT prophylaxis Current Visit: Yes Status: Acute Code(s): SWZ6594 - SNOMED Code(s): 304167742 Comment: -Continue SCDs Status and Disposition: -For possible D/C in AM
[2018-06-08] MEDS: Atorvastatin* 40 MG TAB PO SCH (16:57)
[2018-06-09 04:10] VITALS: BP 124/48
[2018-06-09 05:51] LABS: Hematocrit 39 % (42-52); Hemoglobin 13.3 g/dl (14.0-18.0); Mean Corpuscular HGB Conc 34 g/dl (31-36); Mean Corpuscular Hemoglobin 32 pg (27-31); Mean Corpuscular Volume 93 fL (80-94); Mean Platelet Volume 8.8 fL (7.4-10.4); Platelet Count 154 10^3/ul (150-450); Red Blood Count 4.19 10^6/ul (4.00-5.40); Red Cell Distribution Width 14 % (10.5-15); White Blood Count 5.3 10^3/ul (3.5-10.8)
[2018-06-09 06:17] LABS: EGFR Non-African American 78.6 (>60)
[2018-06-09] MEDS: Lisinopril TAB* 10 MG PO SCH (09:19)
[2018-06-09] MEDS: Clopidogrel TAB* 75 MG PO SCH (09:19)
[2018-06-09] MEDS: Aspirin EC TAB* 81 MG TAB.EC PO SCH (09:20)
[2018-06-09] MEDS: CMC:Formoterol 20 MCG/2ML NEB (NF) 10 MCG/ML NEB.SOLN INH SCH (09:20)
[2018-06-09] MEDS: Tiotropium CAP.INH* CAP.INH/18 MCG (USE ORDER SET !) INH SCH (09:21)
--- NOTE | 2018-06-10 02:44 | DS ---
CC: Dr. Reinaldo Mcdaniels; Dr. Mauricio Holloway; Dr. Ordoñez; Dr. Robles; Dr. Al Peña DISCHARGE SUMMARY: DATE OF ADMISSION: DATE OF DISCHARGE: 06/09/18 DISCHARGE DIAGNOSES: As follows: 1. Cerebrovascular accident, status post tissue plasminogen activator treatment. 2. Patent foramen ovale, small; no treatment at this time is necessary, continue observation and nimco chful waiting. DISCHARGE MEDICATIONS: As follows: 1. Albuterol 1 to 2 puff inhalation q.4 hours p.r.n. 2. Atorvastatin 40 mg p.o. daily. 3. Clopidogrel 75 mg p.o. daily. 4. Lisinopril 20 mg p.o. daily. 5. Aspirin 81 mg p.o. daily. 6. Calcium carbonate/vitamin D3 1 tablet p.o. b.i.d. 7. Dutasteride 0.5 mg p.o. daily. 8. Mometasone nasal spray 1 spray p.r.n. b.i.d. 9. Montelukast 10 mg p.o. daily. 10. Multivitamins 1 tab p.o. daily. 11. Olopatadine 0.1% ophthalmic solution 1 to 2 drops to both eyes b.i.d. 12. Tiotropium bromide/olodaterol 2 puff inhalation daily. HISTORY OF PRESENT ILLNESS/HOSPITAL COURSE: The patient is an 82-year-old gentleman with h istory of hypertension, asthma, and COPD, who presented to the ER due to sudden weakness in his legs in the morning at around 7:45 a.m. with some more right leg weakness noted. There were no falls or s yncope noted. Stat brain CT was done that does not demonstrate any form of acute hemorrhage and he wa s found to have an NIHSS of 3 on arrival with right leg weakness, some dysarthria, and some finger-po inting abnormality. He was determined to be a candidate for tPA and hence an infusion was started at 9:58 a.m. after being seen in the ER initially at 9:38 a.m. He has done well and stayed in the ICU for closer monitoring and was then subsequently transferred to the floor. He had a brain MRI that renan s done that showed a punctate foci of restricted diffusion within the left basal ganglia and anterior parietal lobe consistent with subacute nonhemorrhagic infarct. This was done on 06/07/18. He also was found to have some chronic- appearing lacunar infarct of the basal ganglia bilaterally and left m id brain with chronic small-vessel ischemic changes noted. He also had a head CTA, which revealed no internal carotid artery stenosis by NASCET criteria nor was there any aneurysm, nor vascular malform ation, occlusion, or stenosis that has been visualized in his intracranial circulation, although he d oes have evidence of atherosclerosis. A 2-D echo was subsequently done on 06/06/18, which showed EF of 55% to 60% with left ventricular chamber size that was found to be normal with some evidence of di astolic dysfunction and a patent foramen ovale, which was then evaluated by Dr. Sheppard, who advised th at the patient continue aspirin, Plavix, and statins and had advised watchful waiting at this time un less he would have recurrent [employer] symptoms despite antiplatelet therapy. The patient has also been ad vised to follow up with Dr. Sheppard in 1 to 2 months post discharge. The patient has done well, and although there was a question of a possible differential of temporal a rteritis, I have spoken with Dr. Ordoñez prior to him being discharged and mentioned it was unclear w hy this has been raised given that there is no evidence from his previous notes to suggest that this would be part of the differential, and I have also drawn some ESR labs, which were found to be normal , although CRP was still pending at the time of this dictation. He was advised to follow up and/or call his PCP within 3 days post discharge and to follow up with Dr Ty Ordoñez in 2 to 3 months and to call [phone] to make and/or confirm an appointment. He is also ad vised to follow up with Dr. Sheppard in 1 to 2 months and to call [phone] to make/confirm appointment. He was advised to eat more fruits and veggies and if he is to eat meat, to prefer fish and white melanie t. He was advised to try to exercise as tolerated and he was advised that if his symptoms resume or d evelop new ones or feel unwell for any reason, to call his PCP first. If his PCP cannot entertain hi m due to scheduling issues alone, to call [facility] if the issue is considered nonemergent. He was advised to go to the ER for any type of emergency, among which is loss of motor and/or sensor y functions, inability to speak given his recent CVA. He was advised to call my office regarding any questions, concerns, or further clarifications regarding his discharge plans and/or prescriptions an d to take his medications as prescribed. REVIEW OF SYSTEMS: The patient denied any current headaches, dizziness, fevers, chills, nausea, vomi ting, chest pain, shortness of breath, increased cough. No sputum production, abdominal pain, diarrh ea, constipation, pain, and/or increased frequency on urination, myalgias, arthralgias, throat pain, or new skin lesions. The rest of the 14-point review of systems is otherwise unremarkable. PHYSICAL EXAMINATION: Reveals the most recent vital signs of record with blood pressure of 124/48, 6 9 beats per minute heart rate, 18 per minute respiratory rate, saturating at 99% room air. General A ppearance: The patient is awake, alert, and oriented x3, not in acute distress. HEENT: Normocephal ic, atraumatic. PERRLA. Extraocular muscles intact. Negative for icterus. Moist oral mucosa. Nega tive throat erythema. Neck: Soft, supple with no cervical lymphadenopathy. No JVD. Heart: S1, S2 within normal limits. Regular rate and rhythm. No murmurs, rubs, or gallops. Chest: Clear to ausc ultation bilaterally. Good air entry. No wheezes, rales, or rhonchi. Abdomen: Soft, nondistended, nontender. Normoactive bowel sounds x4 quadrants. Extremities: No cyanosis, clubbing, or edema. P sychiatric: No active psychosis, depression, suicidal or homicidal ideations. Skin: Warm to touch. TIME SPENT: The total time spent evaluating the patient, reviewing pertinent data, and appropriate d ocumentation is 50 minutes. [id number]/[facility] #: [id number]
== END 2018-06-09 13:30 | disposition home or self-care (01) | DRG 62 ==
LOC: ED 09:38 → ICU 11:50 → MEDTELE 06-07 15:26
PROVIDERS: ADMIT Internal Medicine Critical Care Medicine; ATTEND Student in an Organized Health Care Education/Training Program
DX: I63.9 Cerebral infarction, unspecified (principal); Q21.1 Atrial septal defect; G81.91 Hemiplegia, unspecified affecting right dominant side; I10 Essential (primary) hypertension; J44.9 Chronic obstructive pulmonary disease, unspecified; R29.703 NIHSS score 3; R47.1 Dysarthria and anarthria; R40.2362 Coma scale, best motor response, obeys commands, at arrival to emergency department; R40.2142 Coma scale, eyes open, spontaneous, at arrival to emergency department; R40.2252 Coma scale, best verbal response, oriented, at arrival to emergency department; E78.5 Hyperlipidemia, unspecified; N40.0 Benign prostatic hyperplasia without lower urinary tract symptoms; Z80.9 Family history of malignant neoplasm, unspecified; Z82.3 Family history of stroke; Z79.82 Long term (current) use of aspirin; Z82.49 Family history of ischemic heart disease and other diseases of the circulatory system; Z87.891 Personal history of nicotine dependence; Z88.0 Allergy status to penicillin; Z87.01 Personal history of pneumonia (recurrent); Z98.42 Cataract extraction status, left eye; Z98.41 Cataract extraction status, right eye; Z79.02 Long term (current) use of antithrombotics/antiplatelets; H53.2 Diplopia
CPT/HCPCS: 36415; 70450; 70496; 70498; 70551; 71045; 80048; 80053; 80061; 81003; 83036; 83605; 83735; 84100; 84443; 84484; 85025; 85027; 85610; 85652; 85730; 86141; 86850; 86900; 86901; 87641; 93005; 93306; 94640; 99285; A9270-GY; G8978-GP-CH; G8979-GP-CH; G8980-GP-CH; J2997; Q9967

== ENCOUNTER 2021-08-03 15:11 | Inpatient (IN) ==
[2021-08-03 16:42] LABS: ABS Lymphocytes 0.4 10^3/ul (1.0-4.8); ABS Monocytes 0.4 10^3/ul (0-0.8); ABS Neutrophils 7.7 10^3/ul (1.5-7.7); Hematocrit 43 % (42-52); Hemoglobin 14.4 g/dL (14.0-18.0); Lymphocyte % 4.5 %; Mean Corpuscular HGB Conc 34 g/dL (31-36); Mean Corpuscular Hemoglobin 32 pg (27-31); Mean Corpuscular Volume 94 fL (80-94); Mean Platelet Volume 9.2 fL (7.4-10.4); Platelet Count 189 10^3/uL (150-450); Red Blood Count 4.53 10^6 /uL (4.18-5.48); Red Cell Distribution Width 15 % (10-15); White Blood Count 8.6 10^3/uL (3.5-10.8)
[2021-08-03 17:00] LABS: Troponin I 0.01 ng/mL (<0.03)
[2021-08-03 17:24] LABS: ALT 16 U/L (7-52); AST 21 U/L (13-39); Albumin 4.4 g/dL (3.2-5.2); Albumin/Globulin Ratio 1.8 (1-3); Alkaline Phosphatase 70 U/L (35-149); Anion Gap 9 mmol/L (2-11); Blood Urea Nitrogen 20 mg/dL (6-24); CO2 Carbon Dioxide 26 mmol/L (22-32); Calcium 9.3 mg/dL (8.6-10.3); Chloride 107 mmol/L (101-111); Globulin 2.4 g/dL (2-4); Glucose 119 mg/dL (70-100); Potassium 3.8 mmol/L (3.5-5.0); Sodium 142 mmol/L (135-145); Total Protein 6.8 g/dL (6.4-8.9); eGFR CKD-EPI 83.5 (>60)
[2021-08-03 18:02] LABS: Venous Bicarbonate HCO3 25.4 mmol/L (24-28)
[2021-08-03 21:51] LABS: Urine Appearance Clear; Urine Bilirubin Negative (Negative); Urine Blood Negative (Negative); Urine Color Yellow; Urine Glucose Negative (Negative); Urine Ketones 1+ (Negative); Urine Nitrite Negative (Negative); Urine Protein Negative (Negative); Urine Specific Gravity 1.026 (1.002-1.030); Urine Urobilinogen Negative (Negative)
[2021-08-04] MEDS ORDERED: Iohexol 350 (CONTRAST) 500 ML MDV IV ONE (02:24)
[2021-08-04] MEDS ORDERED: Albuterol/Ipratropium NEB.SOL (2.5/0.5 MG) 3 ML NEB.SOLN INH PRN (04:05)
[2021-08-04 05:58] LABS: C Reactive Protein 7.41 mg/L (<8.01)
[2021-08-04] MEDS: Albuterol/Ipratropium NEB.SOL (2.5/0.5 MG) 3 ML NEB.SOLN INH SCH ×3 (06:10→20:40)
[2021-08-04] MEDS ORDERED: Fluticasone NASAL SPRAY 50MCG 16 gm SPRAY BTL BOTH NARES PRN (07:06)
[2021-08-04 07:36] LABS: Folate > 20.00 ng/mL (5.90-24.80)
[2021-08-04 07:37] LABS: Vitamin B12 503 pg/mL (180-914)
[2021-08-04] MEDS ORDERED: cefTRIAXone 1 gm/50 mL NS BAG 1 GM/50 ML BAG IVPB SCH (08:00)
[2021-08-04] MEDS: Enoxaparin 40 MG/0.4 ML SYR SUBCUT SCH (08:38)
[2021-08-04] MEDS: SPIRIVA Respimat (tiotropium) 2.5 mcg/inh Inhaler INH SCH (15:35)
[2021-08-04] MEDS: Albuterol HFA INHALER 8 gm MDI INH SCH ×2 (15:35→21:39)
[2021-08-05] MEDS: Albuterol HFA INHALER 8 gm MDI INH SCH (02:03)
[2021-08-05] MEDS: SPIRIVA Respimat (tiotropium) 2.5 mcg/inh Inhaler INH SCH (08:43)
[2021-08-05] MEDS: Enoxaparin 40 MG/0.4 ML SYR SUBCUT SCH (09:47)
[2021-08-05] MEDS: Albuterol HFA INHALER 8 gm MDI INH PRN (20:48)
[2021-08-06 04:57] LABS: ABS Eosinophils 0.1 10^3/ul (0-0.6); ABS Lymphocytes 1.5 10^3/ul (1.0-4.8); ABS Monocytes 0.7 10^3/ul (0-0.8); ABS Neutrophils 5.1 10^3/ul (1.5-7.7); Eosinophil % 0.8 %; Hematocrit 39 % (42-52); Hemoglobin 13.3 g/dL (14.0-18.0); Lymphocyte % 20.4 %; Mean Corpuscular HGB Conc 34 g/dL (31-36); Mean Corpuscular Hemoglobin 32 pg (27-31); Mean Corpuscular Volume 93 fL (80-94); Mean Platelet Volume 9.3 fL (7.4-10.4); Platelet Count 170 10^3/uL (150-450); Red Cell Distribution Width 15 % (10-15); White Blood Count 7.4 10^3/uL (3.5-10.8)
[2021-08-06 05:15] LABS: eGFR CKD-EPI 86.5 (>60)
[2021-08-06] MEDS: Enoxaparin 40 MG/0.4 ML SYR SUBCUT SCH (10:00)
[2021-08-06] MEDS: SPIRIVA Respimat (tiotropium) 2.5 mcg/inh Inhaler INH SCH (10:48)
[2021-08-07] MEDS: DOXYcycline 100 MG in NS 0.9% 250 ml 250 ML IVPB SCH ×2 (05:37→17:12)
[2021-08-07 06:34] LABS: ABS Lymphocytes 1.3 10^3/ul (1.0-4.8); ABS Monocytes 0.7 10^3/ul (0-0.8); ABS Neutrophils 4.8 10^3/ul (1.5-7.7); Eosinophil % 0.5 %; Hematocrit 45 % (42-52); Hemoglobin 14.4 g/dL (14.0-18.0); Lymphocyte % 19.3 %; Mean Corpuscular HGB Conc 32 g/dL (31-36); Mean Corpuscular Hemoglobin 32 pg (27-31); Mean Corpuscular Volume 98 fL (80-94); Mean Platelet Volume 9.5 fL (7.4-10.4); Platelet Count 163 10^3/uL (150-450); Red Blood Count 4.59 10^6 /uL (4.18-5.48); Red Cell Distribution Width 15 % (10-15); White Blood Count 6.9 10^3/uL (3.5-10.8)
[2021-08-07 06:46] LABS: CO2 Carbon Dioxide 25 mmol/L (22-32); Calcium 9.4 mg/dL (8.6-10.3); Chloride 107 mmol/L (101-111); Sodium 139 mmol/L (135-145)
[2021-08-07 06:52] LABS: Blood Urea Nitrogen 22 mg/dL (6-24); Glucose 93 mg/dL (70-100); eGFR CKD-EPI 85.2 (>60)
[2021-08-07] MEDS: SPIRIVA Respimat (tiotropium) 2.5 mcg/inh Inhaler INH SCH (07:39)
[2021-08-07 09:48] LABS: Anion Gap 7 mmol/L (2-11)
[2021-08-07] MEDS: Enoxaparin 40 MG/0.4 ML SYR SUBCUT SCH (10:08)
[2021-08-08 05:49] LABS: ABS Eosinophils 0.1 10^3/ul (0-0.6); ABS Lymphocytes 3.6 10^3/ul (1.0-4.8); ABS Monocytes 1.1 10^3/ul (0-0.8); ABS Neutrophils 7.8 10^3/ul (1.5-7.7); Eosinophil % 0.5 %; Hematocrit 45 % (42-52); Hemoglobin 14.8 g/dL (14.0-18.0); Lymphocyte % 28.7 %; Mean Corpuscular HGB Conc 33 g/dL (31-36); Mean Corpuscular Hemoglobin 31 pg (27-31); Mean Corpuscular Volume 95 fL (80-94); Nucleated Red Blood Cells % 0.1; Red Blood Count 4.72 10^6 /uL (4.18-5.48); Red Cell Distribution Width 15 % (10-15); White Blood Count 12.6 10^3/uL (3.5-10.8)
[2021-08-08 06:07] LABS: CO2 Carbon Dioxide 17 mmol/L (22-32); Calcium 9.5 mg/dL (8.6-10.3); Chloride 106 mmol/L (101-111); Sodium 137 mmol/L (135-145)
[2021-08-08 06:12] LABS: Blood Urea Nitrogen 27 mg/dL (6-24); Glucose 106 mg/dL (70-100); Platelet Count 220 10^3/uL (150-450); eGFR CKD-EPI 69.9 (>60)
[2021-08-08] MEDS: DOXYcycline 100 MG in NS 0.9% 250 ml 250 ML IVPB SCH ×2 (06:20→17:24)
[2021-08-08 06:27] LABS: Anion Gap 14 mmol/L (2-11)
[2021-08-08] MEDS: Enoxaparin 40 MG/0.4 ML SYR SUBCUT SCH (08:19)
[2021-08-08] MEDS: SPIRIVA Respimat (tiotropium) 2.5 mcg/inh Inhaler INH SCH ×2 (09:29→09:52)
[2021-08-08] MEDS: Mometasone/Formoter 200/5 MDI INH SCH ×2 (09:29→20:41)
[2021-08-08] MEDS: Albuterol HFA INHALER 8 gm MDI INH PRN (09:52)
[2021-08-09] MEDS: DOXYcycline 100 MG in NS 0.9% 250 ml 250 ML IVPB SCH ×2 (06:27→18:20)
[2021-08-09] MEDS: SPIRIVA Respimat (tiotropium) 2.5 mcg/inh Inhaler INH SCH (08:59)
[2021-08-09] MEDS: Albuterol HFA INHALER 8 gm MDI INH SCH ×6 (08:59→22:48)
[2021-08-09] MEDS: Mometasone/Formoter 200/5 MDI INH SCH ×2 (09:01→20:14)
[2021-08-09] MEDS: Enoxaparin 40 MG/0.4 ML SYR SUBCUT SCH (09:19)
[2021-08-09 10:30] LABS: ABS Eosinophils 0.1 10^3/ul (0-0.6); ABS Lymphocytes 1.4 10^3/ul (1.0-4.8); ABS Monocytes 0.7 10^3/ul (0-0.8); ABS Neutrophils 4.7 10^3/ul (1.5-7.7); Eosinophil % 1.6 %; Hematocrit 40 % (42-52); Hemoglobin 13.4 g/dL (14.0-18.0); Lymphocyte % 20.6 %; Mean Corpuscular HGB Conc 33 g/dL (31-36); Mean Corpuscular Hemoglobin 31 pg (27-31); Mean Corpuscular Volume 93 fL (80-94); Mean Platelet Volume 8.9 fL (7.4-10.4); Platelet Count 195 10^3/uL (150-450); Red Blood Count 4.29 10^6 /uL (4.18-5.48); Red Cell Distribution Width 15 % (10-15); White Blood Count 6.9 10^3/uL (3.5-10.8)
[2021-08-09 10:47] LABS: Albumin 3.9 g/dL (3.2-5.2); Albumin/Globulin Ratio 1.9 (1-3); Calcium 9.4 mg/dL (8.6-10.3); Globulin 2.1 g/dL (2-4); Magnesium 1.7 mg/dL (1.9-2.7); Potassium 3.8 mmol/L (3.5-5.0); Total Bilirubin 0.5 mg/dL (0.2-1.0); eGFR CKD-EPI 82.1 (>60)
[2021-08-10] MEDS: Albuterol HFA INHALER 8 gm MDI INH SCH ×2 (02:34→09:16)
[2021-08-10] MEDS: SPIRIVA Respimat (tiotropium) 2.5 mcg/inh Inhaler INH SCH (09:18)
[2021-08-10] MEDS: Mometasone/Formoter 200/5 MDI INH SCH (09:18)
[2021-08-10] MEDS ORDERED: Albuterol HFA INHALER 8 gm MDI INH PRN (09:20)
[2021-08-10] MEDS: Enoxaparin 40 MG/0.4 ML SYR SUBCUT SCH ×2 (09:30→09:33)
[2021-08-10 09:41] LABS: Calcium 9.6 mg/dL (8.6-10.3); Magnesium 1.8 mg/dL (1.9-2.7); Phosphorus 3.4 mg/dL (2.5-5.0); Potassium 3.6 mmol/L (3.5-5.0); eGFR CKD-EPI 83.8 (>60)
[2021-08-10 11:31] VITALS: BP 132/65
== END 2021-08-10 15:30 | disposition home or self-care (01) | DRG 192 ==
LOC: ED 15:11 → EDHOLD 08-04 03:59 → SUATTDRO 08-04 03:59 → MED 08-04 08:53 → SSU 08-08 00:50
PROVIDERS: ADMIT Internal Medicine; ATTEND Internal Medicine

== ENCOUNTER 2021-08-25 06:59 | Inpatient (IN) ==
[2021-09-04] MEDS ORDERED: Senna TAB 8.6 mg TAB PO PRN (15:48)
[2021-09-04] MEDS: Mometasone/Formoter 200/5 MDI INH SCH (20:04)
[2021-09-05] MEDS: Albuterol HFA INHALER 8 gm MDI INH PRN (05:33)
[2021-09-05] MEDS: SPIRIVA Respimat (tiotropium) 2.5 mcg/inh Inhaler INH SCH (10:28)
[2021-09-05] MEDS: Mometasone/Formoter 200/5 MDI INH SCH ×2 (10:28→18:18)
[2021-09-05 14:14] LABS: Urine Appearance Cloudy; Urine Bilirubin Negative (Negative); Urine Blood 3+ (Negative); Urine Color Yellow; Urine Glucose Negative (Negative); Urine Ketones Negative (Negative); Urine Nitrite Negative (Negative); Urine Protein Negative (Negative); Urine Specific Gravity 1.024 (1.002-1.030); Urine Urobilinogen Negative (Negative)
[2021-09-05 14:18] LABS: Urine Bacteria Absent (Absent); Urine Red Blood Cell 3+(>10/hpf) (Absent); Urine White Blood Cell Absent (Absent)
[2021-09-06 05:10] LABS: Hematocrit 37 % (42-52); Hemoglobin 12.5 g/dL (14.0-18.0); Mean Corpuscular HGB Conc 34 g/dL (31-36); Mean Corpuscular Hemoglobin 32 pg (27-31); Mean Corpuscular Volume 93 fL (80-94); Mean Platelet Volume 8.6 fL (7.4-10.4); Platelet Count 102 10^3/uL (150-450); Red Blood Count 3.97 10^6 /uL (4.18-5.48); Red Cell Distribution Width 16 % (10-15); White Blood Count 8.1 10^3/uL (3.5-10.8)
[2021-09-06 05:26] LABS: ABS Eosinophils 0.1 10^3/ul (0-0.6); ABS Lymphocytes 0.4 10^3/ul (1.0-4.8); ABS Monocytes 0.5 10^3/ul (0-0.8); ABS Neutrophils 7.1 10^3/ul (1.5-7.7); Eosinophil % 1.1 %; Lymphocyte % 4.9 %
[2021-09-06 05:27] LABS: Albumin 3.3 g/dL (3.2-5.2); Albumin/Globulin Ratio 1.4 (1-3); Calcium 8.5 mg/dL (8.6-10.3); Globulin 2.4 g/dL (2-4); Potassium 4.1 mmol/L (3.5-5.0); Total Bilirubin 0.5 mg/dL (0.2-1.0); Total Protein 5.7 g/dL (6.4-8.9); eGFR CKD-EPI 86.6 (>60)
[2021-09-06] MEDS: Mometasone/Formoter 200/5 MDI INH SCH ×2 (11:04→19:31)
[2021-09-06] MEDS: SPIRIVA Respimat (tiotropium) 2.5 mcg/inh Inhaler INH SCH (11:04)
[2021-09-07] MEDS: SPIRIVA Respimat (tiotropium) 2.5 mcg/inh Inhaler INH SCH (07:23)
[2021-09-07] MEDS: Mometasone/Formoter 200/5 MDI INH SCH ×2 (07:23→20:02)
[2021-09-07 07:50] LABS: ABS Lymphocytes 0.6 10^3/ul (1.0-4.8); ABS Monocytes 0.4 10^3/ul (0-0.8); Hematocrit 39 % (42-52); Hemoglobin 13.1 g/dL (14.0-18.0); Lymphocyte % 12.2 %; Mean Corpuscular HGB Conc 34 g/dL (31-36); Mean Corpuscular Hemoglobin 32 pg (27-31); Mean Corpuscular Volume 94 fL (80-94); Mean Platelet Volume 8.5 fL (7.4-10.4); Platelet Count 132 10^3/uL (150-450); Red Blood Count 4.15 10^6 /uL (4.18-5.48); Red Cell Distribution Width 16 % (10-15); White Blood Count 5.1 10^3/uL (3.5-10.8)
[2021-09-07 08:08] LABS: Albumin 3.7 g/dL (3.2-5.2); Albumin/Globulin Ratio 1.3 (1-3); Calcium 9.3 mg/dL (8.6-10.3); Globulin 2.8 g/dL (2-4); Total Bilirubin 0.7 mg/dL (0.2-1.0); Total Protein 6.5 g/dL (6.4-8.9); eGFR CKD-EPI 84.4 (>60)
[2021-09-07] MEDS: Albuterol HFA INHALER 8 gm MDI INH PRN (20:01)
[2021-09-08] MEDS: Mometasone/Formoter 200/5 MDI INH SCH ×2 (09:42→19:02)
[2021-09-08] MEDS: SPIRIVA Respimat (tiotropium) 2.5 mcg/inh Inhaler INH SCH (09:42)
[2021-09-09 04:22] VITALS: BP 119/60
[2021-09-09] MEDS: Mometasone/Formoter 200/5 MDI INH SCH (06:47)
[2021-09-09] MEDS: SPIRIVA Respimat (tiotropium) 2.5 mcg/inh Inhaler INH SCH (08:39)
== END 2021-09-09 12:35 | disposition home or self-care (01) | DRG 949 ==
LOC: PMRU 09-04 13:48
PROVIDERS: ADMIT Physical Medicine & Rehabilitation; ATTEND Physical Medicine & Rehabilitation